=== PATIENT | male | born 1965 | race Caucasian/White ===

== ENCOUNTER → 2016-06-26 | Outpatient (CLI) | payer BC, OTHER ==
[~2016-06-26] MED LIST: ASPI81TA28 PO; GLC/500 PO; LISI-729 PO; MELO7.5T5 PO
[2016-06-26 13:30] LABS: ESTIMATED AVERAGE GLUCOSE 123 mg/dl; HA1C FLAG Normal (Normal)
[2016-06-26 13:41] LABS: BLOOD UREA NITROGEN 16 mg/dl (7-18); CALCIUM 9.1 mg/dl (8.5-10.1); CARBON DIOXIDE 29 mmol/L (21-32); CHLORIDE 105 mmol/L (98-107); CREATININE 0.97 mg/dl (0.60-1.40); GLUCOSE 99 mg/dl (70-99); POTASSIUM 4.2 mmol/L (3.5-5.1); SODIUM 140 mmol/L (136-145)
== END | disposition home or self-care (01) ==
LOC: C.LABMFLN 11:03
PROVIDERS: ATTEND Family Medicine
DX: J01.90 Acute sinusitis, unspecified (principal); I10 Essential (primary) hypertension; R73.01 Impaired fasting glucose

== ENCOUNTER 2023-06-25 06:25 | Observation (INO) ==
--- NOTE | 2023-06-10 13:34 | PAT Medication Instructions ---
Medication Instructions Date of Service June 10, 2023 Home Medications Medication Instructions Recorded [facility] Mirage Quattro Mask #1 ea 03/07/20 CPAP Supplies #2 ea 03/15/20 Filters foam 1x2 inch #30 ea 03/15/20 Head Gear for Mirage Quattro #1 ea 03/15/20 Mirage mask , 8 ft tubing, headgear #1 ea 12/17/21 lisinopril 10 mg tablet 10 mg PO QAM #90 tabs 01/24/23 metformin 500 mg tablet See Rx Instructions .Route 01/24/23 .COMPLEX #90 tabs bupropion HCl 200 mg tablet,12 hr See Rx Instructions .Route 03/24/23 sustained-release .COMPLEX #90 ea diclofenac sodium 75 mg 75 mg PO BID #60 tabs 04/28/23 tablet,delayed release aspirin 81 mg tablet,delayed release 81 mg PO QAM lisinopril 10 mg tablet 10 mg PO QAM metformin 500 mg tablet See Rx Instructions .Route .COMPLEX bupropion HCl 200 mg tablet,12 hr sustained-release See Rx Instructions .Route .COMPLEX diclofenac sodium 75 mg tablet,delayed release 75 mg PO BID Continue as directed bupropion HCl 200 mg tablet,12 hr sustained-release See Rx Instructions .Route .COMPLEX ASK your surgeon for instructions diclofenac sodium 75 mg tablet,delayed release 75 mg PO BID ASK your prescriber and surgeon aspirin 81 mg tablet,delayed release 81 mg PO QAM DO NOT take the morning of surgery lisinopril 10 mg tablet 10 mg PO QAM metformin 500 mg tablet See Rx Instructions .Route .COMPLEX Other Notes NOTHING TO EAT OR DRINK AFTER MIDNIGHT. If you have any questions please call us at [phone] or [phone] or [phone] or [phone]
--- NOTE | 2023-06-13 13:30 | Anesthesiology Consultation ---
Date of Service June 13, 2023 Assessment & Plan (1) Encounter for pre-operative examination: - check BSG am DOS. - PCP pre-op 06/10/23 [place]: "...CPAP available for the sedation and surgery. Metformin to be stopped 2 days before surgery and restart 3 days after surgery if hemodynamically stable. Stop aspirin now. Lisinopril to be moved to evening dose and can be taken the evening before surgery and the evening after surgery if hemodynamically stable. Operative risk is above average diue [sic] to his hx severe sleep apnea. Airway will need to be controlled and when sleeping will require CPAP. He will bring in his machine..." Outpatient joint assessment: Patient is currently scheduled for inpatient pathway. If re-evaluated and patient/surgeon requests outpatient pathway, patient is acceptable candidate for outpatient joint program from anesthesia standpoint pending surgeon's office assessment of pt motivation/support/completion of same day joint program preop requirements. Chart Review Chart Review: Acceptable Risk for Surgery and Patient seen in Pre Admission Testing Teaching & Discussion Pre-Anesthesia Teaching/Discussion Notes: Instructed NPO after midnight before surgery, except medications with 15 cc of water. Medication instructions provided according to the PAT guidelines. History Surgery Operation Date: 06/25/23 14:30 Proposed Procedures p Right Total Knee Arthroplasty - Heath Coronado MD Height/Weight Height: 5 ft 6 in Weight: 115.7 kg Allergies Allergy/AdvReac Type Severity Reaction Status Date / Time benzonatate Allergy Intermediate hives Verified 06/10/23 15:09 celecoxib [From Celebrex] Allergy Intermediate hives Verified 06/10/23 15:09 naproxen Allergy Intermediate Hives Verified 06/10/23 15:09 Penicillins Allergy Intermediate Hives Verified 06/10/23 15:09 Sulfa (Sulfonamide Allergy Intermediate Hives Verified 06/10/23 15:09 Antibiotics) Medications Home Medications Medication Instructions Recorded Confirmed Last Taken aspirin 81 mg tablet,delayed 81 mg PO QAM 07/30/18 06/10/23 10/03/22 01:00 release [employer] Mir[employer] Quattro Mask #1 ea 03/07/20 06/10/23 Unknown CPAP Supplies #2 ea 03/15/20 06/10/23 Unknown Filters foam 1x2 inch #30 ea 03/15/20 06/10/23 Unknown Head Gear for Mirage Quattro #1 ea 03/15/20 06/10/23 Unknown Mirage mask , 8 ft tubing, headgear #1 ea 12/17/21 06/10/23 Unknown metformin 500 mg tablet See Rx Instructions .Route 01/24/23 06/10/23 Unknown .COMPLEX #90 tabs bupropion HCl 200 mg tablet,12 hr See Rx Instructions .Route 03/24/23 06/10/23 Unknown sustained-release .COMPLEX #90 ea diclofenac sodium 75 mg 75 mg PO BID #60 tabs 04/28/23 06/10/23 Unknown tablet,delayed release lisinopril 10 mg tablet 10 mg PO QPM 06/13/23 06/13/23 Unknown Additional Notes: Patient was advised he can take lisinopril the evening before surgery as he states was recently adjusted by his PCP, he verbalized understanding cannot take this morning of surgery. Past Medical History Medical History (Updated 06/13/23 @ 13:25 by Roro Craven PA-C) Anxiety mild generalized anxiety BPH (benign prostatic hyperplasia) History of COVID-19 12/2021>denies hospitalization>symptoms resolved Hypertension controlled, stable per pt Prediabetes on metformin Sleep apnea CPAP-compliant Patient denies h/o stroke, seizures, heart attack, heart failure, blood clots/DVTs or blood transfusions. Exercise / Class Metabolic Activity II 4-5 Yardwork/Stairs/Walk up hill (denies chest discomfort or shortness of breath with 1 FOS) Past Family History Family History Father Family history of diabetes mellitus Stroke Mother Family history of diabetes mellitus Melanoma Other No family history of adverse response to anesthesia Past Surgical History Surgical History History of ankle surgery RT>BENIGN TUMOR REMOVED BEHIND ANKLE LEFT ANKLE SURGERY History of arthroscopy RT SHOULDER AND LEFT/RT KNEE SCOPED History of carpal tunnel release of both wrists History of colonoscopy History of esophagogastroduodenoscopy (EGD) History of oral surgery DENTAL IMPLANTS History of repair of right rotator cuff History of tooth extraction Past Anesthesia History No Hx of Anesthesia Complications and No Family Hx of Anesthesia Complications History of PONV No Hx of PONV and No Hx of Motion Sickness Social History Smoking Status: Never smoker Do You Dip or Chew Tobacco: No Hx Alcohol Use: Yes alcohol intake frequency: holidays/special occasions only Hx Substance Use: No substance use type: does not use Review of Systems Patient denies chest pain, shortness of breath, dyspnea on exertion, reflux, fever, chills, cough, wheezing, or palpitations. Physical Exam Vital Signs Vitals BP 115/76 P 82 TEMP 98.3 SP02 96% on RA RESP 18 Physical Patient resting comfortably in chair in no acute distress, alert and oriented, responding appropriately throughout visit Full cervical extension range of motion without pain TMD < 3 finger breadths Mallampati Score 3 Dentition: implants-right upper side and left upper front, denies chipped or loose teeth, caps/crowns, or bridges Lungs: normal respiratory effort. Good air movement, clear throughout to auscultation, no adventitious breath sounds Cardiac: regular rate and rhythm, no murmurs noted Carotid arteries: negative bruit bilat Lab Results Anesthesia Preop Results Results Anesthesia Widget: WBC 8.41 K/ul (4.8-10.8) 06/13/23 Hgb 13.9 g/dl (14.0-18.0) L 06/13/23 Hct 41.0 % (42.0-52.0) L 06/13/23 Plt 270 K/uL (130-400) 06/13/23 Na 137 mmol/L (136-145) 06/13/23 K 4.3 mmol/L (3.5-5.1) 06/13/23 Cl 102 mmol/L (98-107) 06/13/23 CO2 28 mmol/L (21-32) 06/13/23 BUN 21 mg/dl (6-23) 06/13/23 Creat 0.91 mg/dl (0.6-1.4) 06/13/23 Glucose Level 85 mg/dl (70-99(Fasting)) 06/13/23 PT 10.1 Seconds (9.0-12.0) 06/13/23 PTT 26 Seconds (21-31) 06/13/23 INR 0.9 (0.9-1.1) 06/13/23 HA1c 5.9 % (4.5-5.6) H 06/13/23 Urine Color Yellow 06/13/23 Urine Appearance Clear (Clear) 06/13/23 Urine pH 6.5 (4.5-7.5) 06/13/23 Urine Specific [place] 1.010 (1.000-1.030) 06/13/23 Urine Protein Negative (Negative) 06/13/23 Urine Glucose (UA) Negative (Negative) 06/13/23 Urine Ketones Negative (Negative) 06/13/23 Urine Blood Negative (Negative) 06/13/23 Urine Nitrite Negative (Negative) 06/13/23 Urine Bilirubin Negative (Negative) 06/13/23 Urine Urobilinogen Negative (Negative) 06/13/23 Urine Leukocyte Esterase Negative (Negative) 06/13/23 Blood Type A Positive 06/13/23 Antibody Screen NEGATIVE 06/13/23 Testing Electrocardiogram Date: 08/09/22 Sinus rhythm, rate 61 bpm Moderate intraventricular conduction delay Chest X-Ray Date: 06/13/23 No acute process.
--- NOTE | 2023-06-24 19:21 | History & Physical Report ---
Date of Service June 24, 2023 Assessment & Plan (1) Primary osteoarthritis of right knee: Plan: Treatment options discussed with the patient. He has failed conservative measures and like to proceed with surgical management. Risks, benefits and alternatives to surgery including but not limited to infection, DVT, pain, stiffness, need for revision surgery, damage to blood vessels, damage to nerves, PE, , were discussed with the patient and they wish to proceed. Plan on right total knee arthroplasty scheduled for June [address] Coronado. Plan on aspirin 81 mg twice daily for 1 month postop for DVT prophylaxis. Plan on outpatient physical therapy postop. All Questions answered. Patient will follow-up postoperatively. History of Present Illness Chief Complaint: Right knee pain Primary Care Provider: Naresh Rider MD 58-year-old male with past medical history significant for hypertension, sleep apnea, BPH who presents with ongoing right knee pain. Pain is interfering with his daily activities. Patient has failed conservative measures and would like to proceed with surgical management. Patient denies headaches, sweats, fevers, chills, double vision, blurred vision, cough, sore throat, dysphagia, chest pain, sob, wheezing, n/v/d/c, numbness, tingling, fatigue, urinary symptoms, mood disorders. ROS positive for right knee pain and stiffness. Allergies Allergy/AdvReac Type Severity Reaction Status Date / Time benzonatate Allergy Intermediate hives Verified 06/10/23 15:09 celecoxib [From Celebrex] Allergy Intermediate hives Verified 06/10/23 15:09 naproxen Allergy Intermediate Hives Verified 06/10/23 15:09 Penicillins Allergy Intermediate Hives Verified 06/10/23 15:09 Sulfa (Sulfonamide Allergy Intermediate Hives Verified 06/10/23 15:09 Antibiotics) Home Medications Medication Instructions Recorded Confirmed Type aspirin 81 mg tablet,delayed 81 mg PO QAM 07/30/18 06/10/23 History release [facility] Mir[employer] Quattro Mask #1 ea 03/07/20 06/10/23 Rx CPAP Supplies #2 ea 03/15/20 06/10/23 Rx Filters foam 1x2 inch #30 ea 03/15/20 06/10/23 Rx Head Gear for Mirage Quattro #1 ea 03/15/20 06/10/23 Rx Mirage mask , 8 ft tubing, headgear #1 ea 12/17/21 06/10/23 Rx metformin 500 mg tablet See Rx Instructions .Route 01/24/23 06/10/23 Rx .COMPLEX #90 tabs bupropion HCl 200 mg tablet,12 hr See Rx Instructions .Route 03/24/23 06/10/23 Rx sustained-release .COMPLEX #90 ea diclofenac sodium 75 mg 75 mg PO BID #60 tabs 04/28/23 06/10/23 Rx tablet,delayed release lisinopril 10 mg tablet 10 mg PO QPM 06/13/23 06/13/23 History Past Med/Surg History Medical History (Updated 06/24/23 @ 19:20 by Rohan Mcneil PA-C) BPH (benign prostatic hyperplasia) History of COVID-19 12/2021>denies hospitalization>symptoms resolved Prediabetes on metformin Anxiety mild generalized anxiety Hypertension controlled, stable per pt Sleep apnea CPAP-compliant Surgical History History of esophagogastroduodenoscopy (EGD) History of colonoscopy History of repair of right rotator cuff History of carpal tunnel release of both wrists History of ankle surgery RT>BENIGN TUMOR REMOVED BEHIND ANKLE LEFT ANKLE SURGERY History of oral surgery DENTAL IMPLANTS History of tooth extraction History of arthroscopy RT SHOULDER AND LEFT/RT KNEE SCOPED Family History Father Family history of diabetes mellitus Stroke Mother Family history of diabetes mellitus Melanoma Other No family history of adverse response to anesthesia Social History Smoking Status: Never smoker Second Hand Exposure: No; Do You Dip or Chew Tobacco: No; Tobacco Cessation Education Requested by Patient: No Hx Alcohol Use: Yes Hx Substance Use: No Preferred Language: Divehi Communication Ability: Effective Visual Impairment: No Limitations Wood Treating Inspector Required: No Beliefs That Will Affect Care: None Current Living Situation: Spouse Other Information That Helps Us Care for You: No Feels Safe at Home: Yes Safety Concerns: Feels Safe At This Time Childhood Exposure to Second-Hand Smoke: Yes (Brother) Seatbelt Use: sometimes Sunscreen Use: Yes Assistive Devices: CPAP and Glasses Review of Systems All systems reviewed & are unremarkable except as noted in HPI & below Physical Exam Constitutional: well developed and well nourished; no acute distress Eyes: PERRL, conjunctivae normal, anicteric sclerae ENMT: external ear and nose normal, oropharynx normal Neck: trachea midline, no thyromegaly Respiratory: normal respiratory effort, lungs clear to auscultation Cardiovascular: RRR, no murmur, no edema Musculoskeletal: Right knee: Valgus alignment. Mild effusion. Tenderness medial lateral joint line. Moderate crepitation. [place]'s is positive bilaterally. Valgus stress test with lateral laxity, stable varus stress test. Range of motion is 0 to 120 degrees. There is some knee hyperextension on the right with more valgus alignment on the right than the left. Some pseudolaxity bilaterally with more laxity on the right MCL. Skin: no rashes, warm and dry Neurologic: patellar DTR's 2+ bilat, sensation intact Psychiatric: A+Ox3, euthymic affect Results & Data Diagnostic Findings Right knee radiographs demonstrate [id number] lateral compartment with bone loss with significant valgus alignment. Large loose body posterior. Patellofemoral compartment with moderately advanced osteoarthritic changes.
[~2023-06-25 06:25] MED LIST changes: +ACETAMINOPHEN 500 MG TAB PO SCH; -ASPI81TA28 PO; +BUPIVACAINE 0.5 % 5 MG/1 ML PF 10ML VIAL ONE; +FAMOTIDINE 20 MG TAB PO SCH; +GABAPENTIN 600 MG DOSE PO SCH; -GLC/500 PO; -LISI-729 PO; +LR 500ML BOLUS, THEN 15ML/HR IV SCH; +LR 60ML/HR IV SCH; -MELO7.5T5 PO; +METOCLOPRAMIDE HCL 10 MG TABLET PO SCH; +ROPIV 0.5% 246mg, Ketorolac 30mg, EPINEPHrine 0.5mg in NSS INFIL SCH; +ROPIVACAINE 0.5% 5 MG/ML 30 ML VIAL ONE; +TRANEXAMIC ACID 1,000 MG **IV Intra-op IV SCH; +TRANEXAMIC ACID 1,000 MG **IV Pre-op IV SCH; +VANCOMYCIN HCL 1,750 MG in SODIUM CHLORIDE 0.9% 500 ML IV SCH; +dexAMETHasone**PF** 10 MG/ML VIAL IV SCH
[2023-06-25] MEDS ORDERED: ONDANSETRON INJ 2 MG/ML 2 ML VIAL ONE (07:31)
[2023-06-25] MEDS ORDERED: MIDAZOLAM HCL 1 MG/ML 2ML VIAL ONE (07:31)
[2023-06-25] MEDS ORDERED: PROPOFOL IV EMULSION 10 MG/ML 20 ML VIAL IV ONE ×4 (07:31→11:11)
[2023-06-25] MEDS ORDERED: fentaNYL citrate PF 100 MCG/2 ML VIAL ONE (07:31)
[2023-06-25] MEDS ORDERED: LIDOCAINE 2% 2 ML VIAL/AMP(20MG/ML) INFIL ONE (07:31)
[2023-06-25] MEDS ORDERED: DEXAMETHASONE SOD INJ 4 MG/ML VIAL ONE (07:31)
--- NOTE | 2023-06-25 07:35 | History & Physical Bridge Note ---
Date of Service June 25, 2023 History & Physical Bridge Note I have examined the patient, reviewed the History & Physical and in the interval since the performance of the History & Physical I have noted the following changes of clinical significance: no changes noted
[2023-06-25] MEDS ORDERED: dexAMETHasone**PF** 10 MG/ML VIAL ONE (08:13)
[2023-06-25] MEDS ORDERED: ORTHO JOINT ANESTHETIC ONE (08:15)
[2023-06-25] MEDS ORDERED: fentaNYL citrate PF 100 MCG/2 ML VIAL IV PRN (08:41)
[2023-06-25] MEDS ORDERED: ONDANSETRON INJ 2 MG/ML 2 ML VIAL IV PRN ×2 (08:41→12:19)
[2023-06-25] MEDS ORDERED: ePHEDrine sulfate 50 MG/ML AMP IV PRN (08:41)
[2023-06-25] MEDS ORDERED: ATROPINE SULFATE 0.1 MG/ML 10ML SYR IV PRN (08:41)
[2023-06-25] MEDS ORDERED: ePHEDrine sulfate 50 MG/5 ML SYR ONE (09:35)
[2023-06-25] MEDS ORDERED: PHENYLEPHRINE 100MCG/ML 10ML SYR IV ONE (09:35)
--- NOTE | 2023-06-25 11:26 | Operative Report ---
Post Operative Report Pre & Post Diagnosis Operation Date: 06/25/23 09:35 Pre-Op Diagnosis: Right Knee Osteoarthritis Post-Op Diagnosis: Right Knee Osteoarthritis I identified the patient and participated in the time-out.: Yes Procedure Operation Date: 06/25/23 09:35 Actual Procedures p Right Total Knee Arthroplasty(Right), Simone and Acticoat superficial wound VAC application - Heath Coronado MD Surgeon Heath Coronado MD Senior Engineering Specialist Rohan TEIXEIRA Estimated Blood Loss 5 Findings Consistent with Post-Op Diagnosis Specimens bone cuts Drains 2 Hemovac Anesthesia Type MAC Spinal Regional Complications none Disposition Disposition: Recovery Room Indications 58-year-old male with bilateral severe osteoarthritis of the knees with the right knee having marked valgus alignment and limited range of motion. Patient has [id number] lateral compartment with bone loss and gapping of the medial compartment with some laxity of the MCL. Description of Procedure Patient was taken to the operating room placed supine on the operating table and anesthetized under Spinal MAC regional block anesthesia. Exam under anesthesia demonstrated moderately large effusion with 0 through 115 degrees range of motion with some grade 2 MCL laxity with valgus stress and no pseudolaxity laterally with tight lateral compartment. Valgus alignment around 20 degrees at least. There are multiple varicose veins that were large on the entire leg ankle to thigh. A pneumatic tourniquet was placed about the thigh of the Right lower extremity. The right lower extremity was prepped and draped in usual sterile fashion. The leg was elevated exsanguinated with an Esmarch bandage and the pneumatic tourniquet was raised to 300mm mercury. An anterior incision was made across the right knee. The skin was incised longitudinally subcutaneous flaps were elevated , some of the larger varicose veins were cauterized. an incision was made through the medial retinaculum extending up into the mid third of the quadriceps tendon and extended down to the medial tibial tubercle. Intra-articular findings demonstrated Severe lateral compartment osteoarthritis with bone loss eburnated bone complete notch stenosis chronic ACL tear chronic lateral meniscus tear with subluxation laterally calcification of the meniscus very tight IT band large tricompartmental osteophytes and some laxity but intact MCL. The knee was exposed by excising the infrapatellar fat pad, excising the meniscal remnants and Using a curved osteotome to remove the notch osteophytes and expose the posterior cruciate ligament and it was excised. Any inflamed synovial tissue was resected. The fat pad over the anterior femur was resected for placement of the component in that area. The lateral synovial bands were released. The femur was exposed. The Intramedullary drill hole was placed into the femoral canal and the cutting guide was adjusted to make a 6 degree valgus cut. I had to do a +2 cut because there was a hypoplastic lateral femoral condyle and at the +0 setting we would not cut through any bone on the femoral condyle.. The distal femoral cut was made with the oscillating saw. The sizing guide was placed and the guide was placed in alignment with the epicondylar axis and pinned in position and femur sized for size 7. The size 7, 4-in-1 cutting block was placed. The anterior and posterior chamfer cuts were made. The knee was extended and a subperiosteal peel lateral release was performed around the patella. The patella width was measured and width was reproduced using freehand cut technique. The 32 millimeter symmetrical patella was used. 3 drill holes are made for the pegs. The tibia was exposed. An external tibial cutting guide was placed perpendicular to the tibia long axis and adjusted for slope and appropriate depth of cut 1 to 2 mm below the most deficient lateral side.. the proximal cut was made with the oscillating saw. All osteophytes were resected. The lamina adon was used to assess ligamentous balance and the ligaments were balanced in extension and flexion. in order to get flexion extension ba jose alberto gaps it required release of the lateral tibial plateau release to the IT band on the lateral tibial plateau piecrusting the IT band releasing the popliteus off the femur. The tibia was reexposed and measured for a size F tibial component. This was externally rotated in line with the tibial tubercle and the fixation pins were drilled. The proximal tibia was fashioned with the drill and punch. The size7 femoral trial was inserted. notch cut was made and call was placed. The trial CPS inserts were used. The 12 mm insert gave balanced ligaments through full range of motion. The patella tracked with some lateral patellar tilt so I did a lateral release leaving the synovium intact and corrected the patella to central tracking. the trials were removed. The orthomix anesthetic cocktail was injected per protocol. The knee was then copiously irrigated with pulsatile lavage saline solution. The final components were cemented with Refobacin bone cement. The final components were 7 standard posterior stabilized [employer] persona femoral component with an F right tibial component with a 12 CPS tibial polyethylene and a 32 mm polyethylene symmetrical patell. experience solution was placed below the tibial polyethylene prior to insertion. The knee joint was copiously irrigated with pulsatile lavage Xperience solution . 2 drains were brought out laterally and connected to a Hemovac. The quadriceps tendon and medial retinaculum were closed with interrupted [id number] #1 Vicryl sutures. The knee was taken through a full range of motion which was 0-130 degrees and the repair was secure. The subcutaneous tissues were closed with 2-0 Vicryl sutures and skin was closed with [place].A Simone and Acticoat superficial wound VAC was applied and the patient tolerated the procedure well. Rohan Valle my physician museum assistant participated as first aid officer and was an integral part in all aspects of the procedure ,he assisted in soft tissue retraction, instrument management ,leg positioning, the closure, application of the superficial wound VAC and will participate in the postoperative care of the patient. I attest to the content of the Intraoperative Record and any orders documented therein. Any exceptions are noted below.
[2023-06-25] MEDS ORDERED: METOCLOPRAMIDE HCL INJ 5 MG/ML 2 ML VIAL IV PRN (12:19)
[2023-06-25] MEDS ORDERED: NALOXONE HCL 0.4 MG/1 ML VIAL/CARP IV PRN (12:19)
[2023-06-25] MEDS ORDERED: bisacodyL 10 MG SUPP PR PRN (12:19)
[2023-06-25] MEDS ORDERED: TAMSULOSIN HCL 0.4 MG CAP PO PRN (12:19)
[2023-06-25] MEDS ORDERED: HYDROmorphone INJ 0.5 MG/0.5 ML SYR IV PRN (12:19)
[2023-06-25] MEDS ORDERED: SODIUM CHLORIDE 0.9% 1,000 ML IV SCH (12:19)
[2023-06-25] MEDS ORDERED: VANCOMYCIN CONSULT ACTIVE PRN (12:19)
[2023-06-25] MEDS ORDERED: MAGNESIUM HYDROXIDE SUSP 30 ML UDC PO PRN (12:19)
--- NOTE | 2023-06-25 12:31 | XRay Report ---
XR knee RT 1 or 2V routine CLINICAL HISTORY: Postoperative evaluation. COMPARISON: Right knee radiographs January 12, 2020. FINDINGS: Alignment of the total right knee arthroplasty is anatomic. There is no periprosthetic fra cture or unexpected radiopaque foreign body. There are skin rehana and surgical drain. Calcific dens ities within the right popliteal fossa are again noted. IMPRESSION: Expected findings following total right knee arthroplasty. ACT 112: Negative or not required by law. Electronically signed by: Castro Pena M.D. 06/25/2023 12:29 PM
[2023-06-25] MEDS: ACETAMINOPHEN 500 MG TAB PO SCH ×2 (14:11→21:37)
[2023-06-25] MEDS: buPROPion SR 100 MG TABCR PO SCH (14:11)
--- NOTE | 2023-06-25 14:51 | Anesthesiology Progress Note ---
Date of Service June 25, 2023 Anesthesia Post Procedure Vital Signs Vital Signs: Temp Pulse Pulse Resp BP Pulse Ox O2 Del Method 06/25/23 14:15 97.7 F 77 18 115/67 97 Room Air 06/25/23 13:31 98.1 F 70 16 109/66 98 Room Air 06/25/23 12:54 97.5 F L 79 18 109/68 97 Room Air 06/25/23 12:26 98.2 F 81 18 105/61 100 Room Air 06/25/23 12:10 99.1 F 77 15 110/63 93 Room Air 06/25/23 12:00 88 17 106/61 97 Oxymask 06/25/23 11:52 99.0 F 89 14 117/70 97 Oxymask 06/25/23 06:58 98.4 F 81 18 136/78 97 Room Air O2 Flow Rate 06/25/23 14:15 06/25/23 13:31 06/25/23 12:54 06/25/23 12:26 06/25/23 12:10 06/25/23 12:00 7 06/25/23 11:52 7 06/25/23 06:58 Transfer of Care Handoff Completed per policy Notes Mental Status: alert / awake / arousable and participated in evaluation Patient Amnestic to Procedure: Yes Nausea / Vomiting: adequately controlled Pain: adequately controlled Airway Patency, RR, SpO2: stable & adequate BP & HR: stable & adequate Hydration State: stable & adequate Neuraxial Anesthesia: was administered and sensory block is resolving Anesthetic Complications: no major complications apparent and Pt Satisfied with anesthetic care
--- NOTE | 2023-06-25 15:34 | Hospitalist Consultation ---
Date of Consultation June 25, 2023 Assessment & Plan (1) Status post total right knee replacement: -Patient is Post-op Day # 0, S/P Right Total Knee Arthroplasty, Simone and Acticoat superficial wound VAC application with Dr. Coronado -EBL listed as 5cc, MAC/Regional/Spinal anesthesia, no reported intraoperative complications -Patient denies current complaints -Agree with AM CBC and BMP tomorrow, we will follow -Monitor for bleeding after starting Xarelto on 06/26 for post-operative DVT PPX -Will order daily famotidine for stress ulcer PPX -Thank you for allowing us to participate in the care of this patient, reach out with any questions or concerns -Medicine will continue to follow (2) Benign essential hypertension: -Stable -Ok to restart lisinopril on 06/26 as ordered as long as he is hemodynamically stable with stable renal function (3) Obstructive sleep apnea: -Order placed at the time of consult for patient to use own CPAP (4) Prediabetes: -Hold metformin -Not on insulin therapy -Will start ACHS BSG checks, goal is 110-140 -Start CF of 50 ACHS for now -Conitnue DMII diet -Adjust regimen as needed Plan The patient was discussed with Dr. Carrasco at the time of the consult History of Present Illness Reason for Consultation: Post-op medical management Requesting Physician: Heath Coronado MD Attending Physician: Dr. Adolfo Carrasco History of Present Illness Kg is a 58 year old male with a PMH significant for HTN, LUIS on HS CPAP, prediabetes who presented to [facility] on 06/25/23 for elective Right Total Knee Arthroplasty(Right), Simone and Acticoat superficial wound VAC application with Dr. Coronado. Per the operative report, anesthesia was listed as MAC/Spinal/Regional, EBL was listed as 5, and there were no reported intraoperative complications. Vitals have remained stable. We were consulted for post-operative medical management. At the time of the exam the patient was sitting in bed in no acute distress with his sitting bedside. He is feeling well since his procedure earlier today. He can tell the nerve block in the RLE is starting to wear off but is without complaints. He was able to eat lunch without issue and brought his home CPAP machine with mask. He did not have any home meds this am prior to arrival. Please refer to Dr. Carrasco's attestation for any changes to the treatment plan Allergies Allergy/AdvReac Type Severity Reaction Status Date / Time benzonatate Allergy Intermediate hives Verified 06/25/23 06:56 celecoxib [From Celebrex] Allergy Intermediate hives Verified 06/25/23 06:56 naproxen Allergy Intermediate Hives Verified 06/25/23 06:56 Penicillins Allergy Intermediate Hives Verified 06/25/23 06:56 Sulfa (Sulfonamide Allergy Intermediate Hives Verified 06/25/23 06:56 Antibiotics) Home Medications Medication Instructions Recorded Confirmed Type aspirin 81 mg tablet,delayed 81 mg PO QAM 07/30/18 06/25/23 History release [employer]Med Mirage Quattro Mask #1 ea 03/07/20 06/10/23 Rx CPAP Supplies #2 ea 03/15/20 06/10/23 Rx Filters foam 1x2 inch #30 ea 03/15/20 06/10/23 Rx Head Gear for Mirage Quattro #1 ea 03/15/20 06/10/23 Rx Mirage mask , 8 ft tubing, headgear #1 ea 12/17/21 06/10/23 Rx metformin 500 mg tablet See Rx Instructions .Route 01/24/23 06/25/23 Rx .COMPLEX #90 tabs diclofenac sodium 75 mg 75 mg PO BID #60 tabs 04/28/23 06/25/23 Rx tablet,delayed release lisinopril 10 mg tablet 10 mg PO QPM 06/13/23 06/25/23 History bupropion HCl 200 mg tablet,12 hr See Rx Instructions .Route .COMPLEX 06/25/23 06/25/23 History sustained-release (Wellbutrin SR) Patient History Medical History BPH (benign prostatic hyperplasia) History of COVID-19 12/2021>denies hospitalization>symptoms resolved Prediabetes on metformin Anxiety mild generalized anxiety Hypertension controlled, stable per pt Sleep apnea CPAP-compliant Surgical History (Updated 06/25/23 @ 15:54 by Frank Vivas PA-C) History of esophagogastroduodenoscopy (EGD) History of colonoscopy History of repair of right rotator cuff History of carpal tunnel release of both wrists History of ankle surgery RT>BENIGN TUMOR REMOVED BEHIND ANKLE LEFT ANKLE SURGERY History of oral surgery DENTAL IMPLANTS History of tooth extraction History of arthroscopy RT SHOULDER AND LEFT/RT KNEE SCOPED Family History Father Family history of diabetes mellitus Stroke Mother Family history of diabetes mellitus Melanoma Other No family history of adverse response to anesthesia Social History Smoking Status: Never smoker Second Hand Exposure: No; Do You Dip or Chew Tobacco: No; Tobacco Cessation Education Requested by Patient: No Hx Alcohol Use: Yes Hx Substance Use: No Preferred Language: Welsh Communication Ability: Effective Visual Impairment: No Limitations Grain Broker Required: No Beliefs That Will Affect Care: None Current Living Situation: Spouse Other Information That Helps Us Care for You: No Feels Safe at Home: Yes Safety Concerns: Feels Safe At This Time Childhood Exposure to Second-Hand Smoke: Yes (Brother) Seatbelt Use: sometimes Sunscreen Use: Yes Assistive Devices: Walker Physical Exam Physical Exam: Physical Exam: General: In no acute distress, stated age, well-nourished, good hygiene HEENT: Normocephalic, atraumatic, no scleral icterus, pupils around round, symmetrical, and reactive to light, moist mucus membranes, trachea midline, no thyromegaly Chest/Pulm: No respiratory distress, symmetrical chest expansion, clear breath sounds throughout Cardiac: RRR, no murmurs noted Abdomen: Negative for ascites and bruising, normoactive bowel sounds, soft, non-tender to palpation throughout Musculoskeletal: RLE is currently wrapped and with splint in place, intact sensation and motor function in the BL feet Extremities: Radial, dorsalis pedis, and posterior tibial pulses are intact and symmetrical, no edema noted in the BL LE's Skin: Warm, dry, no rashes , lesions, or scars noted Neuro: Alert and oriented to person, place, month, year, and president, no focal defects, no tremors noted Psych: No acute distress, calm and cooperative during the exam Results & Data Results & Data Vital Signs (Past 12 Hours) Vital Signs Temp Pulse Pulse Resp BP Pulse Ox O2 Del Method 06/25/23 14:15 36.5 C 77 18 115/67 97 Room Air 06/25/23 13:31 36.7 C 70 16 109/66 98 Room Air 06/25/23 12:54 36.4 C L 79 18 109/68 97 Room Air 06/25/23 12:26 36.8 C 81 18 105/61 100 Room Air 06/25/23 12:10 37.3 C 77 15 110/63 93 Room Air 06/25/23 12:00 88 17 106/61 97 Oxymask 06/25/23 11:52 37.2 C 89 14 117/70 97 Oxymask 06/25/23 06:58 36.9 C 81 18 136/78 97 Room Air O2 Flow Rate 06/25/23 14:15 06/25/23 13:31 06/25/23 12:54 06/25/23 12:26 06/25/23 12:10 06/25/23 12:00 7 06/25/23 11:52 7 06/25/23 06:58 Laboratory Results Abnormal lab results 06/25/23 06/25/23 Range/Units 06:53 12:50 POC Glucose 115 H 146 H (70-99) mg/dl Diagnostic Findings Knee X-Ray 06/25/23 11:53 XR knee RT 1 or 2V routine CLINICAL HISTORY: Postoperative evaluation. COMPARISON: Right knee radiographs January 12, 2020. FINDINGS: Alignment of the total right knee arthroplasty is anatomic. There is no periprosthetic fracture or unexpected radiopaque foreign body. There are skin rehana and surgical drain. Calcific densities within the right popliteal fossa are again noted. IMPRESSION: Expected findings following total right knee arthroplasty. ACT 112: Negative or not required by law. Electronically signed by: Castro Pena M.D. 06/25/2023 12:29 PM PG Care Time/CCT Total # of Minutes Spent Total Time Spent with Patient: Total time spent is greater than 50% in coordination of care (as documented) at patient's floor/unit and/or counseling patient: C[place] [address] IN/OBS CONSULT LVL 5,80M Patient Type Established History Comprehensive Exam Comprehensive Medical Decision Making Moderate Complexity Diagnoses Status post total right knee replacement Z96.651 Benign essential hypertension I10 Obstructive sleep apnea G47.33 Prediabetes R73.03
[2023-06-25] MEDS ORDERED: GLUCOSE 10 TAB/TUBE PO PRN (15:49)
[2023-06-25] MEDS ORDERED: GLUCAGON FOR INJ 1 MG VIAL SQ PRN (15:49)
[2023-06-25] MEDS ORDERED: DEXTROSE 50% 50 ML SYRINGE IV PRN (15:49)
[2023-06-25] MEDS ORDERED: CARBOHYDRATES FOR HYPOGLYCEMIA PO PRN (15:49)
[2023-06-25] MEDS ORDERED: GLUCOSE 40% GEL 15 GM TUBE PO PRN (15:49)
[2023-06-25] MEDS: INSULIN ASPART PER UNIT CHARGE SC SCH ×2 (16:51→21:39)
[2023-06-25] MEDS ORDERED: SENNA 8.6 MG TAB PO SCH (21:00)
[2023-06-25] MEDS: DOCUSATE SODIUM 100 MG CAP PO SCH (21:37)
[2023-06-25] MEDS ORDERED: VANCOMYCIN HCL 1,750 MG in SODIUM CHLORIDE 0.9% 500 ML IV SCH (22:00)
[2023-06-25] MEDS: oxyCODONE HCL IR 5 MG TAB (IMMEDIATE RELEASE) PO PRN (23:22)
[2023-06-26] MEDS ORDERED: Nursing to Pharmacy Communication SCH (00:30)
[2023-06-26] MEDS: ACETAMINOPHEN 500 MG TAB PO SCH (05:42)
[2023-06-26 06:39] LABS: Hematocrit (blood only) 34.7 % (42.0-52.0); Hemoglobin 11.6 g/dl (14.0-18.0); Mean Corpuscular Hemoglobin 31.8 pg (25.0-34.0); Mean Corpuscular Hgb Conc 33.4 g/dL (32.0-36.0); Mean Corpuscular Volume 95.1 fL (80.0-100.0); Mean Platelet Volume 10.2 fL (9.4-12.4); Platelet Count 236 K/uL (130-400); RDW Coefficient of Variation 12.3 % (11.5-14.5); Red Blood Count 3.65 M/uL (4.70-6.10); White Blood Count 17.48 K/ul (4.8-10.8)
[2023-06-26 06:51] LABS: BUN Creatinine Ratio 21.2 (10-20); Calcium 8.8 mg/dl (8.6-10.3); Creatinine Clr Calc Pharmacy 113.4 ml/min; Est GFR (African American) 112.1 ml/min; Est GFR (Non-African American) 96.7 ml/min; Potassium 4.5 mmol/L (3.5-5.1)
--- NOTE | 2023-06-26 07:56 | Orthopedic Progress Note ---
Date of Service June 26, 2023 Assessment & Plan (1) Status post total right knee replacement: Plan: Postop day #1 right total knee arthroplasty -PT/OT -Pain management as written -DVT prophylaxis: SCDs, teds, Xarelto 10 mg daily -A.m. labs: Hemoglobin 11.6 from 13.9 preop acute blood loss anemia due to surgical loss versus dilutional. Leukocytosis likely reactive due to surgical stress versus perioperative steroids. Patient is asymptomatic. -Discharge planning: Plan on discharge home with outpatient therapy versus home health therapy. Will see outpatient progresses this morning and we will recheck Hemovac output for possible discharge home today versus tomorrow. Admission and Anticipated Discharge Date Admission Date: June 25, 2023 Subjective Patient is postop day 1 right total knee arthroplasty. He has mild soreness but is controlled. No other complaints. Denies chest pain, shortness of breath, nausea/vomiting/diarrhea, headaches or dizziness. Review of Systems Review of Systems: All systems reviewed & are unremarkable except as noted in Subjective Physical Exam Physical Exam: Right knee: Dressings clean, dry, intact. Hemovac on suction. Toes are mobile with good dorsiflexion. No calf tenderness. Able to straight leg raise. Distal neurovascular status and sensation is grossly intact. Results & Data Vital Signs (Past 12 Hours) Vital Signs Temp Pulse Resp BP Pulse Ox O2 Del Method 06/26/23 07:37 36.6 C 61 18 131/76 98 Room Air 06/26/23 03:05 36.7 C 72 18 110/70 93 Room Air 06/25/23 23:18 36.6 C 73 18 127/72 93 Room Air 06/25/23 20:00 Room Air
[2023-06-26] MEDS: buPROPion SR 100 MG TABCR PO SCH (08:04)
[2023-06-26] MEDS: DOCUSATE SODIUM 100 MG CAP PO SCH (08:04)
[2023-06-26] MEDS: oxyCODONE HCL IR 5 MG TAB (IMMEDIATE RELEASE) PO PRN ×2 (08:09→11:56)
[2023-06-26] MEDS: INSULIN ASPART PER UNIT CHARGE SC SCH (08:11)
--- NOTE | 2023-06-26 08:12 | Hospitalist Progress Note ---
Date of Service June 26, 2023 Assessment & Plan (1) Status post total right knee replacement: Plan: s/p Right Total Knee Arthroplasty, Simone and Acticoat superficial wound VAC application with lateral release to procedure, with Dr Coronado 06/25 Post-op management w/ pain control/bowel regimen/pt/ot/dvt proph per primary (Xarelto being utilized for DVT proph) WBC elevation suspected 2nd to stress/surgery/streroids. Afebrile Hgb 13.9--> 11.6. EBL 5cc, hemovac output 300cc. Acute blood loss anemia from surgery as well as dilutional aspect from IVF. Asymptomatic Planning for dc today per primary service however patient awaiting formal eval by therapy today to ensure able to return home. CM to follow given reports of issues w/ outpatient therapy/wanting home health therapy due to working/transport issues. Messaged CM to f/u on therapy evals for possible dc today (2) Benign essential hypertension: Plan: Chronic, stable BP 131/76 at present, renal function stable Lisinopril to continue this evening (3) Obstructive sleep apnea: Plan: CPAP HS, has own in room (4) Prediabetes: Plan: A1c 5.9, on metformin at home (held while inpatient) DM diet BSG AC/HS, sliding scale insulin w/ acceptable BSGs Can resume home metformin at dc Plan Thank you for allowing hospitalist service to participate in the care of Mr Moya. Hospitalist service will sign off at this time. Please call with any questions/concerns. Admission and Anticipated Discharge Date Admission Date: June 25, 2023 Supervising Physician Co-Signing Physician Notes The patient was not seen by me. The chart was reviewed. Case discussed with LLUVIA Max. Agree with assessment and plan Subjective Eval this morning, getting ready to work with PT. Eating/drinking without issue, passing some gas. Encouraged bowel regimen at dc to prevent constipation. Pain controlled with ordered meds. No fevers/chills, chest pain, shortness of breath, abdominal pain, nausea or vomiting. He is hopeful for discharge today but needs to ensure cleared by therapy and may stay overnight depending how he does. CM to look into home nursing to pull hemovac if able to dc today and continue home health therapy as difficult to get to outpatient PT. Physical Exam 2 Physical Exam: General: WD/WN obese male sitting up in chair, NAD, therapy in room HEENT: head atraumatic, normocephalic, thick neck Resp: even/unlabored, no significant w/c/r, on room air CV: RRR, no significant m/r/g, trace pedal edema, calves nontender (reported some cramping with walking), pulses palpable GI: +BS,soft/obese, nontender no lin MSK/Neuro; dressing to RIGHT knee, maicol wrap in place, c/d/i, dorsiflexion/plantar flexion intact, toes mobile, cap refill wnl Psych: AOx3, cooperative with exam Results & Data Results & Data Vital Signs (Past 12 Hours) Vital Signs Temp Pulse Resp BP Pulse Ox O2 Del Method 06/26/23 07:37 36.6 C 61 18 131/76 98 Room Air 06/26/23 03:05 36.7 C 72 18 110/70 93 Room Air 06/25/23 23:18 36.6 C 73 18 127/72 93 Room Air Laboratory Results 06/26/23 06:04 06/26/23 06:04 Diagnostic Findings Knee X-Ray 06/25/23 11:53 XR knee RT 1 or 2V routine CLINICAL HISTORY: Postoperative evaluation. COMPARISON: Right knee radiographs January 12, 2020. FINDINGS: Alignment of the total right knee arthroplasty is anatomic. There is no periprosthetic fracture or unexpected radiopaque foreign body. There are skin rehana and surgical drain. Calcific densities within the right popliteal fossa are again noted. IMPRESSION: Expected findings following total right knee arthroplasty. ACT 112: Negative or not required by law. Electronically signed by: Castro Pena M.D. 06/25/2023 12:29 PM PG Care Time/CCT Total # of Minutes Spent Total Time Spent with Patient: Total time spent is greater than 50% in coordination of care (as documented) at patient's floor/unit and/or counseling patient: Coding Level of Care Code 38024 SUB INP/OBS CARE 2/35MIN Diagnoses Status post total right knee replacement Z96.651 Benign essential hypertension I10 Obstructive sleep apnea G47.33 Prediabetes R73.03
[2023-06-26] MEDS ORDERED: MULTIVITAMIN TAB PO SCH (09:00)
[2023-06-26] MEDS ORDERED: RIVAROXABAN 10 MG TABLET PO SCH (09:00)
[2023-06-26] MEDS ORDERED: FAMOTIDINE 10 MG TABLET PO SCH (09:00)
[2023-06-26] MEDS ORDERED: lisinopril 10 MG TAB PO SCH (21:00)
--- NOTE | 2023-06-27 10:20 | Discharge Summary ---
Date of Service June 27, 2023 Admission HPI Per Admitting Provider 58-year-old male with past medical history significant for hypertension, sleep apnea, BPH who presents with ongoing right knee pain. Pain is interfering with his daily activities. Patient has failed conservative measures and would like to proceed with surgical management. Patient denies headaches, sweats, fevers, chills, double vision, blurred vision, cough, sore throat, dysphagia, chest pain, sob, wheezing, n/v/d/c, numbness, tingling, fatigue, urinary symptoms, mood disorders. ROS positive for right knee pain and stiffness. Admission Exam Per Admitting Provider Constitutional: well developed and well nourished; no acute distress Eyes: PERRL, conjunctivae normal, anicteric sclerae ENMT: external ear and nose normal, oropharynx normal Neck: trachea midline, no thyromegaly Respiratory: normal respiratory effort, lungs clear to auscultation Cardiovascular: RRR, no murmur, no edema Musculoskeletal: Right knee: Valgus alignment. Mild effusion. Tenderness medial lateral joint line. Moderate crepitation. Lubna's is positive bilaterally. Valgus stress test with lateral laxity, stable varus stress test. Range of motion is 0 to 120 degrees. There is some knee hyperextension on the right with more valgus alignment on the right than the left. Some pseudolaxity bilaterally with more laxity on the right MCL. Skin: no rashes, warm and dry Neurologic: patellar DTR's 2+ bilat, sensation intact Psychiatric: A+Ox3, euthymic affect Principal Diagnosis Right knee osteoarthritis Discharge Exam Right knee: Dressings clean, dry, intact. Hemovac on suction. Toes are mobile with good dorsiflexion. No calf tenderness. Able to straight leg raise. Distal neurovascular status and sensation is grossly intact. Discharge Data Allergies Allergy/AdvReac Type Severity Reaction Status Date / Time benzonatate Allergy Intermediate hives Verified 06/25/23 06:56 celecoxib [From Celebrex] Allergy Intermediate hives Verified 06/25/23 06:56 naproxen Allergy Intermediate Hives Verified 06/25/23 06:56 Penicillins Allergy Intermediate Hives Verified 06/25/23 06:56 Sulfa (Sulfonamide Allergy Intermediate Hives Verified 06/25/23 06:56 Antibiotics) Consultations 06/20/23 15:47 Consult Hospitalist Routine Procedures Performed Operation Date: 06/25/23 09:35 Actual Procedures p Right Total Knee Arthroplasty(Right) - Heath Coronado MD Ordered Studies 06/25/23 05:00 US - OR guided needle placemen Routine Hospital Course (1) Status post total right knee replacement: Postop day #1 right total knee arthroplasty -PT/OT -Pain management as written -DVT prophylaxis: SCDs, teds, Xarelto 10 mg daily -A.m. labs: Hemoglobin 11.6 from 13.9 preop acute blood loss anemia due to surgical loss versus dilutional. Leukocytosis likely reactive due to surgical stress versus perioperative steroids. Patient is asymptomatic. -Discharge planning: Plan on discharge home with outpatient therapy versus home health therapy. Will see outpatient progresses this morning and we will recheck Hemovac output for possible discharge home today versus tomorrow. Lab Results 06/25/23 06/25/23 06/25/23 Range/Units 06:53 12:50 16:46 WBC (4.8-10.8) K/ul RBC (4.70-6.10) M/uL Hgb (14.0-18.0) g/dl Hct (42.0-52.0) % MCV (80.0-100.0) fL MCH (25.0-34.0) pg MCHC (32.0-36.0) g/dL RDW Std Deviation (36.4-46.3) fL RDW Coeff of Jaimie (11.5-14.5) % Plt Count (130-400) K/uL MPV (9.4-12.4) fL Sodium (136-145) mmol/L Potassium (3.5-5.1) mmol/L Chloride (98-107) mmol/L Carbon Dioxide (21-32) mmol/L Anion Gap (3-11) BUN (6-23) mg/dl Creatinine (0.6-1.4) mg/dl Est Cr Clr Drug Dosing ml/min Est GFR ( Amer) ml/min Est GFR (Non-Af Amer) ml/min BUN/Creatinine Ratio (10-20) Glucose (70-99(Fasting)) mg/dl POC Glucose 115 H 146 H 185 H (70-99) mg/dl Calcium (8.6-10.3) mg/dl 06/25/23 06/26/23 06/26/23 Range/Units 20:37 06:04 07:36 WBC 17.48 H (4.8-10.8) K/ul RBC 3.65 L (4.70-6.10) M/uL Hgb 11.6 L (14.0-18.0) g/dl Hct 34.7 L (42.0-52.0) % MCV 95.1 (80.0-100.0) fL MCH 31.8 (25.0-34.0) pg MCHC 33.4 (32.0-36.0) g/dL RDW Std Deviation 43.0 (36.4-46.3) fL RDW Coeff of Jaimie 12.3 (11.5-14.5) % Plt Count 236 (130-400) K/uL MPV 10.2 (9.4-12.4) fL Sodium 136 (136-145) mmol/L Potassium 4.5 (3.5-5.1) mmol/L Chloride 106 (98-107) mmol/L Carbon Dioxide 25 (21-32) mmol/L Anion Gap 5 (3-11) BUN 18 (6-23) mg/dl Creatinine 0.85 (0.6-1.4) mg/dl Est Cr Clr Drug Dosing 113.4 ml/min Est GFR ( Amer) 112.1 ml/min Est GFR (Non-Af Amer) 96.7 ml/min BUN/Creatinine Ratio 21.2 H (10-20) Glucose 134 H (70-99(Fasting)) mg/dl POC Glucose 149 H 119 H (70-99) mg/dl Calcium 8.8 (8.6-10.3) mg/dl Total Time Total Time Spent Total Time Spent (In Minutes): 20 Discharge Plan Discharge Items Patient Disposition: Home - Self-Care Reason For Visit: Osteoarthritis Knee Right Discharge Diagnosis: Right knee osteoarthritis Activity: Per Instructions section Non-emergency contact: Surgeon Call non-emergency contact if: you have any medication questions, your pain is not controlled, you have a fever, your temperature is above 101, your wound has increased redness and your wound has increased drainage Follow-up/Referrals: Naresh Rider MD [Primary Care Provider] - Diet: Regular Addtl Attending Provider Instructions: ACTIVITY RECOMMENDATIONS: SELF CARE INSTRUCTIONS AFTER TOTAL KNEE REPLACEMENT A. You may need to continue a physical therapy program after discharge from the hospital. There are several options available to you. Your doctor will assist you in selecting the best one for you. 1. An out-patient facility 2 to 3 times a week for therapy or home therapy. 2. Continue working on all exercises taught to you in the hospital. Your goals should be to increase bending of your knee to 90 degrees and beyond and to fully straighten your knee. B. You may progress at your own pace from walking with a walker or crutches to a cane; then to no assistive devices. C. Make walking a part of your daily routine. Be up as much as comfortable with rest periods throughout the day. Rest with leg elevation is very important. Use the ice wrap frequently for the first 3-4 weeks. D. There are no restrictions on activities. You may ride in a car, shop, participate in securities underwriter and all social activities. E. Wear the long elastic stockings (CHARLENE hose) 20 hours a day for 2 weeks after surgery. They can be removed several times a day for laundering and for a bath. F. You may shower, no tub baths until cleared by your doctor. SPECIAL CARE INSTRUCTIONS: VERY IMPORTANT TO READ AND REVIEW A. There are a few signs you need to watch for after you are home. Call [facility] if you notice any of the followin. Increased severe knee pain. Some pain is expected especially when you exercise. 2. Increased swelling in your leg or knee; pain or swelling of the calf muscle in either lower leg. 3. Any fluid drainage from the incision. 4. Shortness of breath or chest pain. B. Please call [facility] at if you have any concerns or questions about your operation or recovery. The doctor or his nurse will return your call promptly. C. You must take antibiotics before dental work, bladder, bowel or other surgery. Your doctor will provide you with a permanent care to carry describing this precaution. IMPORTANT: * REMEMBER TO TAKE ASPIRIN, 81 MG, TWICE DAILY FOR 4 WEEKS UNLESS OTHERWISE DIRECTED. THIS IS YOUR BLOOD THINNER. * HIGH RISK PATIENTS MAY BE PRESCRIBED A STRONGER BLOOD THINNER. THIS WILL BE PROVIDED AT DISCHARGE. * CALL IF INCREASED PAIN, REDNESS, DRAINAGE OR FEVER GREATER THAT 101. * WEAR CHARLENE HOSE 20 HOURS PER DAY FOR 2 WEEKS. There is a large suction dressing covering your incision. This will help pull any excess drainage from the wound and allow your incision to heal properly. You may shower with this if you can keep the unit outside of the shower. If any bleeding or leakage is noted please call your doctor's office. This will remain on your incision for 7 days and then should be removed. This can be done yourself or by the home nursing staff if applicable. The entire unit is disposable once removed. Once removed, keep incision clean and dry. If redness or drainage is noted, please call your surgeon. IF INCISION IS LEAKING THROUGH DRESSING, CALL THE OFFICE . Hemovac will be removed in the office tomorrow. FOLLOW UP VISIT: If appointment is not already scheduled: Please call [facility] to make a follow-up appointment for 2 weeks after your surgery at . Stand-Alone Forms: My [facility] EZBOB, Smoking Cessation Medications and DC Order Prescriptions: New acetaminophen [Tylenol Extra Strength] 500 mg Tablet 1,000 mg PO Q8 Qty: 60 0RF Xarelto 10 mg Tablet 10 mg PO DAILY Qty: 30 0RF oxycodone 5 mg Tablet 5 - 10 mg PO .Q4h-6h MDD 6 PRN (Reason: pain) Qty: 30 0RF Rx Instructions: Ongoing therapy, Dr. Coronado supervising doxycycline hyclate 100 mg capsule 100 mg PO BID 7 Days Qty: 14 0RF Continued (DME) ResMed Mirage Quattro Mask See Rx Instructions .Route .MEDSUPPLY Qty: 1 0RF Rx Instructions: As directed (DME) CPAP Supplies See Rx Instructions .Route .MEDSUPPLY Qty: 2 0RF Rx Instructions: As directed- G47.33 LUIS (DME) Filters foam 1x2 inch See Rx Instructions .Route .MEDSUPPLY Qty: 30 5RF Rx Instructions: As directed G47.33 LUIS (DME) Head Gear for Mirage Quattro See Rx Instructions .Route .MEDSUPPLY Qty: 1 0RF Rx Instructions: As directed G47.33 LUIS (DME) Mirage mask , 8 ft tubing, headgear See Rx Instructions .Route .MEDSUPPLY Qty: 1 0RF Rx Instructions: As directed metformin 500 mg tablet See Rx Instructions .ROUTE .COMPLEX Qty: 90 1RF Dose Instruction: TAKE 1 TAB BY MOUTH IN THE EVENING Rx Instructions: TAKE 1 TAB BY MOUTH IN THE EVENING lisinopril 10 mg tablet 10 mg PO QPM bupropion HCl [Wellbutrin SR] 200 mg tablet sustained-release 12 hr See Rx Instructions .ROUTE .COMPLEX Rx Instructions: TAKE 1 TABLET BY MOUTH IN THE MORNING Discontinued diclofenac sodium 75 mg tablet,delayed release (DR/EC) 75 mg PO BID Qty: 60 2RF aspirin 81 mg Tablet,Delayed Release (Dr/Ec) 81 mg PO QAM Discharge Orders: Discharge Order (Routine); Ordered 06/26/23 Ordered By: Rohan Morillo/Other Patient Handouts: Oxycodone Oral Tablet, Doxycycline Oral Capsule, Total Knee Replacement Admission Data Admit Date/Time: 06/25/23 11:53 Attending Provider: Heath Coronado Admit Provider: Heath Coronado Primary Care Provider: Naresh Rider Other Providers: Adolfo Gannon [facility],Home Healthcare Other Interventions: Discharge Summary Assessment (RN) Last Done: 06/26/23 11:05
== END 2023-06-26 12:34 | disposition home or self-care (01) ==
LOC: 3E 06:25 → ASU 06:25

== ENCOUNTER 2023-12-11 17:51 | Inpatient (IN) ==
[2023-12-11] MEDS ORDERED: oxyCODONE/ACETAMINOPHEN 5mg/325mg TAB PO PRN (21:08)
[2023-12-11] MEDS ORDERED: GABAPENTIN 100 MG CAP PO PRN (21:16)
[2023-12-11] MEDS ORDERED: VANCOMYCIN CONSULT ACTIVE PRN (21:20)
[2023-12-11] MEDS ORDERED: VANCOMYCIN HCL 1,000 MG in SODIUM CHLORIDE 0.9% 250 ML IV SCH (21:30)
[2023-12-11] MEDS: SODIUM CHLORIDE 0.9% 1,000 ML IV SCH (21:45)
[2023-12-11] MEDS: VANCOMYCIN HCL 2,250 MG in SODIUM CHLORIDE 0.9% 500 ML IV ONE (21:50)
[2023-12-11 21:55] LABS: Basophils # (auto) 0.03 K/uL (0.00-0.20); Basophils % (auto) 0.5 %; Eosinophils # (auto) 0.26 K/uL (0.00-0.50); Hematocrit (blood only) 32.5 % (42.0-52.0); Hemoglobin 10.7 g/dl (14.0-18.0); Immature Granulocytes # (auto) 0.02 K/uL (0.01-0.20); Immature Granulocytes % (auto) 0.3 %; Lymphocytes # (auto) 0.66 K/uL (1.20-3.40); Lymphocytes % (auto) 10.2 %; Mean Corpuscular Hgb Conc 32.9 g/dL (32.0-36.0); Mean Corpuscular Volume 94.2 fL (80.0-100.0); Mean Platelet Volume 9.9 fL (9.4-12.4); Monocytes # (auto) 0.64 K/uL (0.11-0.59); Monocytes % (auto) 9.9 %; Neutrophils # (auto) 4.88 K/uL (1.40-6.50); Neutrophils % (auto) 75.1 %; Platelet Count 237 K/uL (130-400); RDW Coefficient of Variation 13.6 % (11.5-14.5); RDW Standard Deviation 46.9 fL (36.4-46.3); Red Blood Count 3.45 M/uL (4.70-6.10); White Blood Count 6.49 K/ul (4.8-10.8)
[2023-12-11 22:10] LABS: BUN Creatinine Ratio 16.8 (10-20); Calcium 9.2 mg/dl (8.6-10.3); Creatinine Clr Calc Pharmacy 84.9 ml/min; Est GFR (African American) 83.2 ml/min; Est GFR (Non-African American) 71.8 ml/min; Potassium 4.4 mmol/L (3.5-5.1)
--- NOTE | 2023-12-11 22:59 | History & Physical Report ---
Date of Service December 11, 2023 Assessment & Plan (1) Infection of total left knee replacement: Plan: Acute infection 6 weeks post staged knee replacement on left. Gram stain cultures pending. Patient admitted for IV antibiotics and likely irrigation debridement prepatellar bursa and irrigation debridement retention of implant polyethylene exchange, IV antibiotics, probable PICC line and home IV antibiotics 6 weeks. Encounter type: initial encounter Qualified Code(s): T84.54XA - Infection and inflammatory reaction due to internal left knee prosthesis, initial encounter (2) Infection of left prepatellar bursa: Admission and Anticipated Discharge Date Admission Date: December 11, 2023 History of Present Illness Chief Complaint: Left knee infection Primary Care Provider: Naresh Rider MD 58-year-old male status post second knee replacement end-stage bilateral knee replacement left knee most recent replacement. Postoperative. He had some mi nor scabbing over the incision but no drainage. He was covered postoperatively after discharge from the hospital with cefadroxil for a few weeks. The scabbed area resolved and patient progressed well in physical therapy until 4 days ago when he noticed some redness and increased warmth of his knee and was running some low-grade fevers. Saw his PCP pending reevaluation in the office who put him on clindamycin orally. Patient has had no substantial pain. Patient denies headaches, sweats, chills, double vision, blurred vision, cough, sore throat, dysphagia, chest pain, sob, wheezing, n/v/d/c, numbness, tingling, fatigue, urinary symptoms, mood disorders. ROS positive for low-grade fever less than 102 degrees. Allergies Allergy/AdvReac Type Severity Reaction Status Date / Time benzonatate Allergy Intermediate Hives Verified 12/10/23 11:12 celecoxib [From Celebrex] Allergy Intermediate Hives Verified 12/10/23 11:12 naproxen Allergy Intermediate Hives Verified 12/10/23 11:12 Penicillins Allergy Intermediate Hives Verified 12/10/23 11:12 Sulfa (Sulfonamide Allergy Intermediate Hives Verified 12/10/23 11:12 Antibiotics) Home Medications Medication Instructions Recorded Confirmed Type ResMed Mirage Quattro Mask #1 ea 03/07/20 12/11/23 Rx CPAP Supplies #2 ea 03/15/20 12/11/23 Rx Filters foam 1x2 inch #30 ea 03/15/20 12/11/23 Rx Head Gear for Mirage Quattro #1 ea 03/15/20 12/11/23 Rx Mirage mask , 8 ft tubing, headgear #1 ea 12/17/21 12/11/23 Rx gabapentin 100 mg capsule 100 mg PO TID PRN pain #180 caps 07/25/23 12/11/23 Rx metformin 500 mg tablet 500 mg PO QPM #90 tabs 07/25/23 12/11/23 Rx bupropion HCl 200 mg tablet,12 hr 100 mg PO DAILY 10/20/23 12/11/23 History sustained-release lisinopril 10 mg tablet 10 mg PO DAILY 10/20/23 12/11/23 History oxycodone 5 mg tablet 5 mg PO Q4H PRN pain #30 tabs 10/22/23 12/11/23 Rx polyethylene glycol 3350 17 gram 17 g PO DAILY PRN constipation #5 10/22/23 12/11/23 Rx oral powder packet (Miralax) ea Bifidobacterium infantis 4 mg 4 mg PO BID #60 caps 12/10/23 12/11/23 Rx capsule (Align) clindamycin HCl 300 mg capsule 300 mg PO Q6H #40 caps 12/10/23 12/11/23 Rx Past Med/Surg History Problem List (Updated 12/11/23 @ 23:03 by Heath Coronado MD) Infection of left prepatellar bursa Infection of total left knee replacement Infection of knee Status post left knee replacement Hypertension Status post total left knee replacement Osteoarthritis of left knee Post-operative pain Status post total right knee replacement Primary osteoarthritis of right knee De Quervain's tenosynovitis, right Ganglion, right wrist 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 BPH w/o urinary obs/LUTS History of colon polyps Prediabetes Taking Meformin NSAID long-term use Encounter for CDL (commercial driving license) exam Screening, lipid Health care maintenance Colon cancer screening Osteoarthritis, knee Benign essential hypertension (Acute) Depression (Chronic) Obstructive sleep apnea (Acute) Medical History (Updated 12/11/23 @ 23:03 by Heath Coronado MD) Osteoarthritis History of colon polyps Prediabetes BPH (benign prostatic hyperplasia) History of COVID-19 12/2021: symptoms resolved Anxiety "Mild" generalized anxiety Sleep apnea CPAP (compliant) Surgical History (Updated 11/22/23 @ 00:08 by Saqib López) History of total right knee replacement History of esophagogastroduodenoscopy (EGD) History of colonoscopy History of repair of right rotator cuff History of carpal tunnel release of both wrists History of ankle surgery Right, benign tumor removed behind ankle Left ankle surgery History of oral surgery Dental implants History of tooth extraction History of arthroscopy Right shoulder R/L knee Family History Father Family history of diabetes mellitus Stroke Mother Family history of diabetes mellitus Melanoma Other No family history of adverse response to anesthesia Social History Smoking Status: Never smoker Second Hand Exposure: No; Do You Dip or Chew Tobacco: No; Hx Alcohol Use: Yes Alcohol type: beer Hx Substance Use: No Preferred Language: [place] Communication Ability: Effective Visual Impairment: No Limitations Steam [employer] Records Clerk Required: No Beliefs That Will Affect Care: None Current Living Situation: Spouse Other Information That Helps Us Care for You: No Feels Safe at Home: Yes Safety Concerns: Feels Safe At This Time Childhood Exposure to Second-Hand Smoke: Yes (Brother) Seatbelt Use: sometimes Sunscreen Use: Yes Assistive Devices: Glasses Review of Systems All systems reviewed & are unremarkable except as noted in HPI & below Physical Exam Constitutional: WD/WN, vitals as above Respiratory: normal respiratory effort; no respiratory distress Cardiovascular: Rate/Rhythm: regular rate and regular rhythm Gastrointestinal (Abdomen): Abdominal obesity Musculoskeletal: Right knee healed incision moderate knee effusion good alignment good range of motion good stability no pain. Left knee has oval area of erythema surrounding the entire incision 6 8 mm wide by the total length of the incision from inferior to superior. No active draining. Fluid in the prepatellar bursa. This exam was pretty aspiration of the prepatellar bursa and knee joint and subsequent bandages placed in an [place]tw[place] wrap around the knee. Distal circulation sensorimotor exam intact Skin: no rashes, warm and dry Neurologic: normal touch/pain/proprioception Psychiatric: A+Ox3, euthymic affect Results & Data Vital Signs (Past 12 Hours) Vital Signs Temp Pulse Pulse Resp BP Pulse Ox O2 Del Method 12/11/23 22:33 68 18 98 12/11/23 19:25 36.8 C 86 18 125/71 96 Room Air Laboratory Results White blood cell count today 6.49 with 75% neutrophils. C-reactive protein 25.6 erythrocyte sedimentation rate 57 Diagnostic Findings X-rays demonstrate well-fixed well aligned total knee replacement no lucencies no loosening. Similar well aligned knee replacement opposite knee. Code Status & VTE Plan VTE Prophylaxis Plan VTE Prophylaxis will be ordered: Yes
[2023-12-12 07:07] LABS: Creatinine Clr Calc Pharmacy 110.3 ml/min; Est GFR (Non-African American) 95.8 ml/min
[2023-12-12] MEDS: VANCOMYCIN HCL 1,000 MG in SODIUM CHLORIDE 0.9% 250 ML IV SCH (08:14)
[2023-12-12] MEDS: buPROPion SR 100 MG TABCR PO SCH (08:15)
[2023-12-12] MEDS: ADVANCED PROBIOTIC 625 MG CAPSULE PO SCH (08:15)
--- NOTE | 2023-12-12 08:29 | Hospitalist Progress Note ---
Date of Service December 12, 2023 Assessment & Plan (1) Infection of knee: Plan: -started clinda 300mg q6h per PCP for concerns cellulitis and not deeper infxn on 12/09 after presenting with redness/fever 101.5F Reports no drainage from the wound at PCP office although a few weeks ago had some slight drainage ESR/CRP elevated 57, 25.[address] Coronado/orthopedics NPO for I&D left knee today ID consult pending Vancomycin IV (2) Status post left knee replacement: (3) Hypertension: (4) Prediabetes: (5) Depression: (6) Obstructive sleep apnea: Admission and Anticipated Discharge Date Admission Date: December 11, 2023 Results & Data Results & Data Vital Signs (Past 12 Hours) Vital Signs Pulse Resp Pulse Ox 12/12/23 02:34 65 18 97 12/11/23 22:33 68 18 98 Laboratory Results 12/12/23 12/11/23 Range/Units 06:13 21:38 WBC 6.49 (4.8-10.8) K/ul RBC 3.45 L (4.70-6.10) M/uL Hgb 10.7 L (14.0-18.0) g/dl Hct 32.5 L (42.0-52.0) % MCV 94.2 (80.0-100.0) fL MCH 31.0 (25.0-34.0) pg MCHC 32.9 (32.0-36.0) g/dL RDW Std Deviation 46.9 H (36.4-46.3) fL RDW Coeff of Jaimie 13.6 (11.5-14.5) % Plt Count 237 (130-400) K/uL MPV 9.9 (9.4-12.4) fL Immature Gran % (Auto) 0.3 % Neut % (Auto) 75.1 % Lymph % (Auto) 10.2 % Clinton % (Auto) 9.9 % Eos % (Auto) 4.0 % Baso % (Auto) 0.5 % Neut # (Auto) 4.88 (1.40-6.50) K/uL Lymph # (Auto) 0.66 L (1.20-3.40) K/uL Clinton # (Auto) 0.64 H (0.11-0.59) K/uL Eos # (Auto) 0.26 (0.00-0.50) K/uL Baso # (Auto) 0.03 (0.00-0.20) K/uL Immature Gran # (Auto) 0.02 (0.01-0.20) K/uL Sodium 138 (136-145) mmol/L Potassium 4.4 (3.5-5.1) mmol/L Chloride 105 (98-107) mmol/L Carbon Dioxide 26 (21-32) mmol/L Anion Gap 7 (3-11) BUN 19 (6-23) mg/dl Creatinine 0.87 1.13 (0.6-1.4) mg/dl Est Cr Clr Drug Dosing 110.3 84.9 ml/min Est GFR ( Amer) 111.0 83.2 ml/min Est GFR (Non-Af Amer) 95.8 71.8 ml/min BUN/Creatinine Ratio 16.8 (10-20) Glucose 104 H (70-99(Fasting)) mg/dl Calcium 9.2 (8.6-10.3) mg/dl PG Care Time/CCT Total # of Minutes Spent Total Time Spent with Patient: Total time spent is greater than 50% in coordination of care (as documented) at patient's floor/unit and/or counseling patient: Coding Diagnoses Infection of knee M00.9 Status post left knee replacement Z96.652 Primary hypertension I10 Hypertension type: primary hypertension Prediabetes R73.03 Persistent depressive disorder F34.1 Depression Type: persistent depressive disorder Obstructive sleep apnea G47.33 (3) Hypertension Hypertension type: primary hypertension Qualified Code(s): I10 - Essential (primary) hypertension (5) Depression Depression Type: persistent depressive disorder Qualified Code(s): F34.1 - Dysthymic disorder
--- NOTE | 2023-12-12 08:43 | Pharmacy Report ---
Pharmacy PK ABX Note - Date of Service December 12, 2023 - Assessment and Plan Assessment * 58 year old M receiving vancomycin for treatment of infected TKA. ID consult pending * Pertinent microbiologic data includes: possible I&D w cultures anticipated * SCr improved yesterday to today Plan Vancomycin * Loading dose: 2250 mg IV x 1 * Maintenance dose: 1500 mg IV every 12 hours * Regimen is predicted to achieve target AUC/JULIA of 400-600 mg/L.hr * Random level ordered for tomorrow AM Pharmacy will continue to follow and will adjust dose/frequency as necessary. Thank you. Pharmacy has transitioned to AUC monitoring for vancomycin. AUC/JULIA is the preferred PK/PD target and is associated with decreased risk of nephrotoxicity compared to traditional trough targets.
[2023-12-12 10:19] LABS: Hematocrit (blood only) 34.8 % (42.0-52.0); Hemoglobin 11.3 g/dl (14.0-18.0); Mean Corpuscular Hemoglobin 30.8 pg (25.0-34.0); Mean Corpuscular Hgb Conc 32.5 g/dL (32.0-36.0); Mean Corpuscular Volume 94.8 fL (80.0-100.0); Platelet Count 253 K/uL (130-400); RDW Coefficient of Variation 13.5 % (11.5-14.5); RDW Standard Deviation 47.5 fL (36.4-46.3); Red Blood Count 3.67 M/uL (4.70-6.10); White Blood Count 6.38 K/ul (4.8-10.8)
--- NOTE | 2023-12-12 10:30 | Hospitalist Consultation ---
Date of Consultation December 12, 2023 Assessment & Plan (1) Infection of total left knee replacement: Concerns for infection of LEFT knee replacement * started clinda 300mg q6h per PCP (per patient, took 5 doses) for concerns cellulitis and not deeper infxn on 12/09 after presenting with redness/fever 101.5F on Friday night ESR/CRP elevated 57, 25.[address] Coronado/orthopedics NPO for I&D left knee today ID consult pending Vancomycin IV-no reported hx MRSA/pseudomonas/drug resistance Blood cultures added as likely need for PICC/ongoing abx pending OR/cultures/ID eval however notable has already been on antibiotics Procal added to AM labs 0.08 CXR/EKG pre-op ordered- CXR no acute process, EKG NSR. Stable for surgery once timing determined by primary service CPAP HS, has in room Hospitalist service will follow along (2) Infection of left prepatellar bursa: (3) Infection of knee: (4) Sleep apnea: CPAP continued, has in room (5) Prediabetes: A1c 5.9 earlier this year, on metformin which has been held added BSG AC/HS and can add SSI if elevations however suspect will be fine without (unless getting steroids w/ procedure may need coverage) Gabapentin TID prn Can add B12 to AM labs given metformin use (6) Benign essential hypertension: Lisinopril ordered to start tomorrow if renal function/BP stable -- currently 135/78 Plan Thank you for allowing hospitalist service to participate in the care of Mr Moya. Hospitalist service will follow along. Please call with any questions/concerns. Supervising Physician Co-Signing Physician Notes The patient was seen by me. The chart was reviewed. Case discussed with LLUVIA Max. Agree with assessment and plan History of Present Illness Reason for Consultation: medical management Requesting Physician: Dr Coronado Attending Physician: Heath Coronado MD History of Present Illness 58yo male with PMHx significant for HTN, LUIS, pre-DM and recent LEFT knee arthoplasty with Dr Carson on 10/19 presenting for concerns for prosthetic joint infection and planning for I&D today. Eval this morning, waiting potential surgery but not sure on time or if being done tomorrow. Reports had been doing well post-op, doing outpatient physial therapy. He does note he got clinda after his RIGHT knee replacement in the past but got something different this time. No hx MRSA/pseudomonas/drug resistant bacteria. Reports on Friday night with fever 101.5C and called [facility] on Friday with message given redness along his incision but office didn't relay message that day and appt then went to PCP office for wellness visit where there were ongoing concerns for possible cellulitis and given rx for Clindamycin which the patient reports taking 5 doses. He was to bring "two vials" for culture testing which he reports he forgot He reports taking Tylenol at home and having some chills about 4-6hours after taking this but no further fevers. No blood cultures on admission and has received Vancomycin IV and suspect cultures could be altered but he has consult for ID pending which has not yet been done. Presently NPO and hoping for surgery, pain controlled at present time. 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 CPAP HS and has in room, did not have last night. Allergies Allergy/AdvReac Type Severity Reaction Status Date / Time benzonatate Allergy Intermediate Hives Verified 12/12/23 11:44 celecoxib [From Celebrex] Allergy Intermediate Hives Verified 12/12/23 11:44 naproxen Allergy Intermediate Hives Verified 12/12/23 11:44 Penicillins Allergy Intermediate Hives Verified 12/12/23 11:44 Sulfa (Sulfonamide Allergy Intermediate Hives Verified 12/12/23 11:44 Antibiotics) Home Medications Medication Instructions Recorded Confirmed Type ResMed Mirage Quattro Mask #1 ea 03/07/20 12/11/23 Rx CPAP Supplies #2 ea 03/15/20 12/11/23 Rx Filters foam 1x2 inch #30 ea 03/15/20 12/11/23 Rx Head Gear for Mirage Quattro #1 ea 03/15/20 12/11/23 Rx Mirage mask , 8 ft tubing, headgear #1 ea 12/17/21 12/11/23 Rx gabapentin 100 mg capsule 100 mg PO TID PRN pain #180 caps 07/25/23 12/11/23 Rx metformin 500 mg tablet 500 mg PO QPM #90 tabs 07/25/23 12/11/23 Rx bupropion HCl 200 mg tablet,12 hr 100 mg PO DAILY 10/20/23 12/11/23 History sustained-release lisinopril 10 mg tablet 10 mg PO DAILY 10/20/23 12/11/23 History oxycodone 5 mg tablet 5 mg PO Q4H PRN pain #30 tabs 10/22/23 12/11/23 Rx polyethylene glycol 3350 17 gram 17 g PO DAILY PRN constipation #5 10/22/23 12/11/23 Rx oral powder packet (Miralax) ea Bifidobacterium infantis 4 mg 4 mg PO BID #60 caps 12/10/23 12/11/23 Rx capsule (Align) clindamycin HCl 300 mg capsule 300 mg PO Q6H #40 caps 12/10/23 12/11/23 Rx Patient History Medical History Osteoarthritis History of colon polyps Prediabetes BPH (benign prostatic hyperplasia) History of COVID-19 12/2021: symptoms resolved Anxiety "Mild" generalized anxiety Sleep apnea CPAP (compliant) Surgical History History of total right knee replacement History of esophagogastroduodenoscopy (EGD) History of colonoscopy History of repair of right rotator cuff History of carpal tunnel release of both wrists History of ankle surgery Right, benign tumor removed behind ankle Left ankle surgery History of oral surgery Dental implants History of tooth extraction History of arthroscopy Right shoulder R/L knee Family History Father Family history of diabetes mellitus Stroke Mother Family history of diabetes mellitus Melanoma Other No family history of adverse response to anesthesia Social History Smoking Status: Never smoker Second Hand Exposure: No; Do You Dip or Chew Tobacco: No; Hx Alcohol Use: Yes Alcohol type: beer Hx Substance Use: No Preferred Language: Central African Communication Ability: Effective Visual Impairment: No Limitations 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 Beliefs That Will Affect Care: None Current Living Situation: Spouse Other Information That Helps Us Care for You: No Feels Safe at Home: Yes Safety Concerns: Feels Safe At This Time Childhood Exposure to Second-Hand Smoke: Yes (Brother) Seatbelt Use: sometimes Sunscreen Use: Yes Assistive Devices: Cane, Crutches and Walker Physical Exam Physical Exam: General: 58yo male sitting up in bed, in room, NAD, awaiting surgery HEENT: head atraumatic, normocephalic, mmm, trachea midline, +thick neck Resp: even/unlabored, no wcr, on room air CV: RRR, no m/r/g, no pitting edema/calf tenderness varicose veins on the LLE pulses palpable GI: +BS, slight distention but soft/nontender MSK/Neuro:not confused, answering questions appropriately prior R knee scar well healed, no issues LEFT knee w/ +erythema, +fluctuance anteriorly c/w fluid collection +warmth, +slight tenderness but not significant Psych: AOx3, cooperative and pleasant Results & Data Results & Data Vital Signs (Past 12 Hours) Vital Signs Temp Pulse Pulse Resp BP Pulse Ox O2 Del Method 12/12/23 08:36 36.7 C 76 16 146/87 H 99 Room Air 12/12/23 02:34 65 18 97 12/11/23 22:33 68 18 98 Laboratory Results 12/12/23 12/12/23 12/11/23 Range/Units 09:41 06:13 21:38 WBC 6.38 6.49 (4.8-10.8) K/ul RBC 3.67 L 3.45 L (4.70-6.10) M/uL Hgb 11.3 L 10.7 L (14.0-18.0) g/dl Hct 34.8 L 32.5 L (42.0-52.0) % MCV 94.8 94.2 (80.0-100.0) fL MCH 30.8 31.0 (25.0-34.0) pg MCHC 32.5 32.9 (32.0-36.0) g/dL RDW Std Deviation 47.5 H 46.9 H (36.4-46.3) fL RDW Coeff of Jaimie 13.5 13.6 (11.5-14.5) % Plt Count 253 237 (130-400) K/uL MPV 10.0 9.9 (9.4-12.4) fL Immature Gran % (Auto) 0.3 % Neut % (Auto) 75.1 % Lymph % (Auto) 10.2 % Elmore % (Auto) 9.9 % Eos % (Auto) 4.0 % Baso % (Auto) 0.5 % Neut # (Auto) 4.88 (1.40-6.50) K/uL Lymph # (Auto) 0.66 L (1.20-3.40) K/uL Elmore # (Auto) 0.64 H (0.11-0.59) K/uL Eos # (Auto) 0.26 (0.00-0.50) K/uL Baso # (Auto) 0.03 (0.00-0.20) K/uL Immature Gran # (Auto) 0.02 (0.01-0.20) K/uL Sodium 139 138 (136-145) mmol/L Potassium 4.6 4.4 (3.5-5.1) mmol/L Chloride 105 105 (98-107) mmol/L Carbon Dioxide 27 26 (21-32) mmol/L Anion Gap 7 7 (3-11) BUN 13 19 (6-23) mg/dl Creatinine 0.85 0.87 1.13 (0.6-1.4) mg/dl Est Cr Clr Drug Dosing 112.9 110.3 84.9 ml/min Est GFR ( Amer) 112.1 111.0 83.2 ml/min Est GFR (Non-Af Amer) 96.7 95.8 71.8 ml/min BUN/Creatinine Ratio 15.3 16.8 (10-20) Glucose 102 H 104 H (70-99(Fasting)) mg/dl Calcium 9.1 9.2 (8.6-10.3) mg/dl Magnesium 2.2 (1.7-2.4) mg/dl Procalcitonin 0.08 (0-0.5) ng/ml Diagnostic Findings Chest X-Ray 12/12/23 08:38 XR chest 1V portable HISTORY: 58 years-old Male pre-op preoperative exam. No acute chest complaints COMPARISON: 06/13/2023 TECHNIQUE: AP view of the chest FINDINGS: Cardiac silhouette is normal. Lungs are clear. No pneumothorax or pleural effusion. Spondylitic spurring of the spine. IMPRESSION: No acute process. ACT 112: Negative or not required by law. The above report was generated using voice recognition software. It may contain grammatical, syntax or spelling errors. Electronically signed by: Simone Ramos M.D. 12/12/2023 11:39 AM PG Care Time/CCT Total # of Minutes Spent Total Time Spent with Patient: Total time spent is greater than 50% in coordination of care (as documented) at patient's floor/unit and/or counseling patient: Coding Level of Care Code 41366 IN/OBS CONSULT LVL 3,45M Diagnoses Infection of total left knee replacement, initial encounter T84.54XA Encounter type: initial encounter Infection of left prepatellar bursa M71.162 Infection of knee M00.9 Sleep apnea G47.30 Prediabetes R73.03 Benign essential hypertension I10 (1) Infection of total left knee replacement Encounter type: initial encounter Qualified Code(s): T84.54XA - Infection and inflammatory reaction due to internal left knee prosthesis, initial encounter
[2023-12-12 10:31] LABS: BUN Creatinine Ratio 15.3 (10-20); Calcium 9.1 mg/dl (8.6-10.3); Creatinine Clr Calc Pharmacy 112.9 ml/min; Est GFR (African American) 112.1 ml/min; Est GFR (Non-African American) 96.7 ml/min; Magnesium 2.2 mg/dl (1.7-2.4); Potassium 4.6 mmol/L (3.5-5.1)
[2023-12-12] MEDS ORDERED: MIDAZOLAM HCL 1 MG/ML 2ML VIAL ONE (10:51)
[2023-12-12] MEDS ORDERED: ONDANSETRON INJ 2 MG/ML 2 ML VIAL ONE ×2 (10:51→16:07)
[2023-12-12] MEDS ORDERED: LIDOCAINE 2% 2 ML VIAL/AMP(20MG/ML) INFIL ONE (10:51)
[2023-12-12] MEDS ORDERED: fentaNYL citrate PF 100 MCG/2 ML VIAL ONE ×3 (10:51→16:19)
[2023-12-12] MEDS ORDERED: PROPOFOL IV EMULSION 10 MG/ML 20 ML VIAL IV ONE (10:51)
--- NOTE | 2023-12-12 11:42 | XRay Report ---
XR chest 1V portable HISTORY: 58 years-old Male pre-op preoperative exam. No acute chest complaints COMPARISON: 06/13/2023 TECHNIQUE: AP view of the chest FINDINGS: Cardiac silhouette is normal. Lungs are clear. No pneumothorax or pleural effusion. Spondylitic spurr ing of the spine. IMPRESSION: No acute process. ACT 112: Negative or not required by law. The above report was generated using voice recognition software. It may contain grammatical, syntax o r spelling errors. Electronically signed by: Simone Ramos M.D. 12/12/2023 11:39 AM
[2023-12-12] MEDS: LACTATED RINGER'S 1,000 ML IV SCH (11:46)
[2023-12-12] MEDS ORDERED: ROPIVACAINE 0.5% 5 MG/ML 30 ML VIAL ONE (12:22)
[2023-12-12] MEDS ORDERED: ONDANSETRON INJ 2 MG/ML 2 ML VIAL IV PRN (12:27)
[2023-12-12] MEDS ORDERED: ePHEDrine sulfate 50 MG/ML AMP IV PRN (12:27)
[2023-12-12] MEDS ORDERED: ATROPINE SULFATE 0.1 MG/ML 10ML SYR IV PRN (12:27)
--- NOTE | 2023-12-12 12:55 | Infectious Disease Consult ---
Date of Consultation December 12, 2023 Assessment & Plan (1) Infection of knee: (2) Status post left knee replacement: Plan 58-year-old male with PMH of HTN, LUIS, R Knee replacement ( 06/25/23), recent L knee replacement ( 10/20/23) who presents with a 2 week history of progressively worsening Left knee erythema and warmth. In the last few days the area has become more red and he had associated fever with T m 101.5 at home. . He was seen by his PCP and ortho for this. He was started on Clindamycin. He reports rash/hives with penicillins and Sulfa antibiotics. He took about 5 doses of antibiotics with minimal improvement in redness and swelling. He was referred by ortho to the hospital for I and D. He denies trauma to the area, falls, cough change in stool, urine habits, chest pain . He is pending OR today. On admission he is afebrile and HDS. BCx NG ( early). Labs with WBC 10.7, ESR 57, crp 25.6, procal 0.08, BUN 19, cr 0.99. CXr with no infiltrates. No knee imaging available. He was started ion IV vancomycin. Id consulted for left knee infection. On my initial exam his left knee is warm, red, with a fluctuant effusion with some discomfort on palpation. 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 Fllow up OP report IF evidence deep space infection or PJI/hardware involvement will need 6 weeks of pathogen directed therapy followed by oral suppression if hardware is retained. If this is a superficial infection without deep space or hardware involvement, a short course of oral antibiotics is expected if no bacteremia. Thank you for this consult. [facility] will not round over the weekend. Please call covering provider at [phone] with questions. Sabas Horta MD, MPH Infectious Disease [facility] Consultation Information Consultation was provided via telemedicine using two-way real-time interactive telecommunication between the patient and the telemedicine provider. For the duration of the visit, the provider was performing the assessment from a different facility than the patient. This includesuse of bluetooth stethoscope forauscultationperformed by the telepresenter that the telemedicine provider can hear if described in the physical exam. Beck Tender contact information: Please call [facility] Call Center . (Phone Number For Physician Use Only) After establishing a telemedicine visit, patient was: Patient was verified with two unique identifiers Time Spent with Patient: Initial => 75 min History of Present Illness Reason for Consultation: Septic total knee infection Requesting Physician: Heath Coronado MD Attending Physician: Heath Coronado MD History of Present Illness 58-year-old male with PMH of HTN, LUIS, R Knee replacement ( 06/25/23), recent L knee replacement ( 10/20/23) who presents with a 2 week history of progressively worsening Left knee erythema and warmth. In the last few days the area has become more red and he had associated fever with T m 101.5 at home. . He was seen by his PCP and ortho for this. He was started on Clindamycin. He reports rash/hives with penicillins and Sulfa antibiotics. He took about 5 doses of antibiotics with minimal improvement in redness and swelling. He was referred by ortho to the hospital for I and D. He denies trauma to the area, falls, cough change in stool, urine habits, chest pain . He is pending OR today. On admission he is afebrile and HDS. BCx NG ( early). Labs with WBC 10.7, ESR 57, crp 25.6, procal 0.08, BUN 19, cr 0.99. CXr with no infiltrates. No knee imaging available. He was started ion IV vancomycin. Id consulted for left knee infection. On my initial exam his left knee is warm, red, with a fluctuant effusion with some discomfort on palpation. Allergies Allergy/AdvReac Type Severity Reaction Status Date / Time benzonatate Allergy Intermediate Hives Verified 12/12/23 11:44 celecoxib [From Celebrex] Allergy Intermediate Hives Verified 12/12/23 11:44 naproxen Allergy Intermediate Hives Verified 12/12/23 11:44 Penicillins Allergy Intermediate Hives Verified 12/12/23 11:44 Sulfa (Sulfonamide Allergy Intermediate Hives Verified 12/12/23 11:44 Antibiotics) Home Medications Medication Instructions Recorded Confirmed Type ResMed Mirage Quattro Mask #1 ea 03/07/20 12/11/23 Rx CPAP Supplies #2 ea 03/15/20 12/11/23 Rx Filters foam 1x2 inch #30 ea 03/15/20 12/11/23 Rx Head Gear for Mirage Quattro #1 ea 03/15/20 12/11/23 Rx Mirage mask , 8 ft tubing, headgear #1 ea 12/17/21 12/11/23 Rx gabapentin 100 mg capsule 100 mg PO TID PRN pain #180 caps 07/25/23 12/11/23 Rx metformin 500 mg tablet 500 mg PO QPM #90 tabs 07/25/23 12/11/23 Rx bupropion HCl 200 mg tablet,12 hr 100 mg PO DAILY 10/20/23 12/11/23 History sustained-release lisinopril 10 mg tablet 10 mg PO DAILY 10/20/23 12/11/23 History oxycodone 5 mg tablet 5 mg PO Q4H PRN pain #30 tabs 10/22/23 12/11/23 Rx polyethylene glycol 3350 17 gram 17 g PO DAILY PRN constipation #5 10/22/23 12/11/23 Rx oral powder packet (Miralax) ea Bifidobacterium infantis 4 mg 4 mg PO BID #60 caps 12/10/23 12/11/23 Rx capsule (Align) clindamycin HCl 300 mg capsule 300 mg PO Q6H #40 caps 12/10/23 12/11/23 Rx Patient History Medical History Osteoarthritis History of colon polyps Prediabetes BPH (benign prostatic hyperplasia) History of COVID-19 12/2021: symptoms resolved Anxiety "Mild" generalized anxiety Sleep apnea CPAP (compliant) Surgical History History of total right knee replacement History of esophagogastroduodenoscopy (EGD) History of colonoscopy History of repair of right rotator cuff History of carpal tunnel release of both wrists History of ankle surgery Right, benign tumor removed behind ankle Left ankle surgery History of oral surgery Dental implants History of tooth extraction History of arthroscopy Right shoulder R/L knee Family History Father Family history of diabetes mellitus Stroke Mother Family history of diabetes mellitus Melanoma Other No family history of adverse response to anesthesia Social History Smoking Status: Never smoker Second Hand Exposure: No; Do You Dip or Chew Tobacco: No; Hx Alcohol Use: Yes Alcohol type: beer Hx Substance Use: No Preferred Language: Ukrainian Communication Ability: Effective Visual Impairment: No Limitations Commercial Credit Lead Required: No Beliefs That Will Affect Care: None Current Living Situation: Spouse Other Information That Helps Us Care for You: No Feels Safe at Home: Yes Safety Concerns: Feels Safe At This Time Childhood Exposure to Second-Hand Smoke: Yes (Brother) Seatbelt Use: sometimes Sunscreen Use: Yes Assistive Devices: Cane, Crutches and Walker Review of System A 10 point ROS obtained. Pertinent Positives as per HPI Physical Exam Physical Exam: Gen- NAD, laying in bed Neck- supple HEENT- anicteric sclera Lung-No increased work of breathing Abd- soft Ext - Left knee effusion with slight fluctuance, with surrounding erythema, tenderness and warm. Incision intact. Psych- Normal mood Psych- AAO*3 Results & Data Vital Signs (Past 12 Hours) Vital Signs Temp Pulse Pulse Resp BP Pulse Ox O2 Del Method 12/12/23 11:30 37.1 C 72 18 135/78 98 Room Air 12/12/23 08:36 36.7 C 76 16 146/87 H 99 Room Air 12/12/23 02:34 65 18 97 Laboratory Results Laboratory Results - last 48 hr 12/11/23 12/12/23 12/12/23 21:38 06:13 09:41 WBC 6.49 6.38 RBC 3.45 L 3.67 L Hgb 10.7 L 11.3 L Hct 32.5 L 34.8 L MCV 94.2 94.8 MCH 31.0 30.8 MCHC 32.9 32.5 RDW Std Deviation 46.9 H 47.5 H RDW Coeff of Jaimie 13.6 13.5 Plt Count 237 253 MPV 9.9 10.0 Immature Gran % (Auto) 0.3 Neut % (Auto) 75.1 Lymph % (Auto) 10.2 Loving % (Auto) 9.9 Eos % (Auto) 4.0 Baso % (Auto) 0.5 Neut # (Auto) 4.88 Lymph # (Auto) 0.66 L Loving # (Auto) 0.64 H Eos # (Auto) 0.26 Baso # (Auto) 0.03 Immature Gran # (Auto) 0.02 Sodium 138 139 Potassium 4.4 4.6 Chloride 105 105 Carbon Dioxide 26 27 Anion Gap 7 7 BUN 19 13 Creatinine 1.13 0.87 0.85 Est Cr Clr Drug Dosing 84.9 110.3 112.9 Est GFR ( Amer) 83.2 111.0 112.1 Est GFR (Non-Af Amer) 71.8 95.8 96.7 BUN/Creatinine Ratio 16.8 15.3 Glucose 104 H 102 H Calcium 9.2 9.1 Magnesium 2.2 Procalcitonin 0.08 Diagnostic Findings Chest X-Ray 12/12/23 08:38 XR chest 1V portable HISTORY: 58 years-old Male pre-op preoperative exam. No acute chest complaints COMPARISON: 06/13/2023 TECHNIQUE: AP view of the chest FINDINGS: Cardiac silhouette is normal. Lungs are clear. No pneumothorax or pleural effusion. Spondylitic spurring of the spine. IMPRESSION: No acute process. ACT 112: Negative or not required by law. The above report was generated using voice recognition software. It may contain grammatical, syntax or spelling errors. Electronically signed by: Simone Ramos M.D. 12/12/2023 11:39 AM Medications Administered Home Medications Medication Instructions Recorded Confirmed Last Taken ResMed Mirage Quattro Mask #1 ea 03/07/20 12/11/23 Unknown CPAP Supplies #2 ea 03/15/20 12/11/23 Unknown Filters foam 1x2 inch #30 ea 03/15/20 12/11/23 Unknown Head Gear for Mirage Quattro #1 ea 03/15/20 12/11/23 Unknown Mirage mask , 8 ft tubing, headgear #1 ea 12/17/21 12/11/23 Unknown gabapentin 100 mg capsule 100 mg PO TID PRN pain #180 caps 07/25/23 12/11/23 12/11/23 300 mg metformin 500 mg tablet 500 mg PO QPM #90 tabs 07/25/23 12/11/23 12/10/23 18:00 500 mg bupropion HCl 200 mg tablet,12 hr 100 mg PO DAILY 10/20/23 12/11/23 12/11/23 07:00 sustained-release 100 mg lisinopril 10 mg tablet 10 mg PO DAILY 10/20/23 12/11/23 12/11/23 07:00 10 mg oxycodone 5 mg tablet 5 mg PO Q4H PRN pain #30 tabs 10/22/23 12/11/23 2 Months Ago ~10/11/23 polyethylene glycol 3350 17 gram 17 g PO DAILY PRN constipation #5 10/22/23 12/11/23 2 Months Ago oral powder packet (Miralax) ea ~10/11/23 Bifidobacterium infantis 4 mg 4 mg PO BID #60 caps 12/10/23 12/11/23 Unknown capsule (Align) clindamycin HCl 300 mg capsule 300 mg PO Q6H #40 caps 12/10/23 12/11/23 12/11/23 12:00 Active Medications Generic Name Dose Route Start Last Admin Trade Name Freq PRN Reason Stop Dose Admin Bupropion HCl 100 mg 12/12/23 09:00 12/12/23 08:15 Bupropion Sr 100 Mg Tabcr PO 01/11/24 08:59 100 mg DAILY RIP Administration Sodium Chloride 1,000 mls @ 100 mls/hr 12/11/23 21:15 12/12/23 11:47 Nss IV 01/10/24 21:14 0 mls/hr .Q10H RIP Infusion Lactated Ringer's 1,000 mls @ 0 mls/hr 12/12/23 12:00 12/12/23 11:46 Lr IV 01/11/24 11:59 15 mls/hr .Q0M RIP Administration KVO Lactobacillus Acidophilus 1,250 mg 12/12/23 09:00 12/12/23 08:15 Advanced Probiotic 625 Mg Capsule PO 01/11/24 08:59 1,250 mg DAILY RIP Administration
--- NOTE | 2023-12-12 12:55 | Electrocardiogram Report ---
Test Reason : Blood Pressure : / mmHG Vent. Rate : 073 BPM Atrial Rate : 073 BPM P-R Int : 176 ms QRS Dur : 108 ms QT Int : 374 ms P-R-T Axes : 044 007 022 degrees QTc Int : 412 ms Normal sinus rhythm Normal ECG When compared with ECG of 20-OCT-2023 05:41, No significant change was found Confirmed by Dex Boss ([id number]) on 12/12/2023 12:54:33 PM Referred By: Heath Coronado Confirmed By:Royce Boss
--- NOTE | 2023-12-12 13:11 | History & Physical Bridge Note ---
Date of Service December 12, 2023 History & Physical Bridge Note I have examined the patient, reviewed the History & Physical and in the interval since the performance of the History & Physical I have noted the following changes of clinical significance: no changes noted
[2023-12-12] MEDS ORDERED: KETAMINE HCL 10MG/ML SYR ONE (13:54)
[2023-12-12] MEDS ORDERED: ROCURONIUM BROMIDE 10 MG/ML 5 ML VIAL IV ONE ×2 (13:54→14:42)
[2023-12-12] MEDS: ceFAZolin 330 MG/ML 1 GM VIAL ONE (14:18)
[2023-12-12] MEDS: VANCOMYCIN HCL 1000MG/20ML VIAL ONE (14:19)
[2023-12-12] MEDS: HYDROmorphone INJ 2 MG/ML SYR/VIAL IV PRN (16:28)
--- NOTE | 2023-12-12 16:32 | Post Operative Brief Note ---
Immediate Post Op Note Date of Surgery December 12, 2023 Pre & Post Diagnosis Preoperative diagnosis: Acute septic left total knee replacement and septic prepatellar bursitis. Postop diagnosis: Same with medial retinacular tear. Operation Date: 12/12/23 07:00 <No data on this case meets the specified criteria> I identified the patient and participated in the time-out.: Yes Procedure Operation Date: 12/12/23 07:00 <No data on this case meets the specified criteria> Surgeon Heath Coronado MD Multi Punch Operator None Estimated Blood Loss 25 Findings Consistent with Post-Op Diagnosis Specimens Multiple cultures including soft tissue cultures Drains Hemovac Drain Anesthesia Type General Regional Complications none Disposition Disposition: Recovery Room Overlapping Procedure I was immediately available: during the entire case.
[2023-12-12] MEDS ORDERED: HYDROmorphone INJ 0.5 MG/0.5 ML SYR IV PRN ×2 (16:55→17:00)
[2023-12-12] MEDS: HYDROmorphone INJ 2 MG/ML SYR/VIAL ONE (16:58)
--- NOTE | 2023-12-12 17:19 | Operative Report ---
Post Operative Report Pre & Post Diagnosis Preoperative diagnosis: Acute septic left total knee replacement, septic prepatellar bursitis Postoperative diagnosis: Same, medial retinacular failed repair secondary to infection. Operation Date: 12/12/23 07:00 <No data on this case meets the specified criteria> I identified the patient and participated in the time-out.: Yes Procedure Left knee incision, drainage, irrigation, debridement, prepatellar bursa and left knee joint with tibial polyethylene exchange and placement of Stimulan antibiotic beads and revision repair medial retinaculum and closure over drains knee joint and prepatellar bursa. Operation Date: 12/12/23 07:00 <No data on this case meets the specified criteria> Surgeon Heath Coronado MD Insulation Board Calender Operator None Estimated Blood Loss 25 Findings Consistent with Post-Op Diagnosis Specimens Multiple swab cultures prepatellar bursa and joint and soft tissue prepatellar bursa and joint and cultures polyethylene tibial implant interface. Drains 3 Hemovac Anesthesia Type General Regional Complications none Disposition Disposition: Recovery Room Indications 58-year-old male who had staged bilateral knee replacements most recently his left 6 weeks ago and developed acute infection involving his prepatellar bursa and knee joint. I did aspirate this in clinic yesterday and patient was instructed to bring the collection of fluid from both aspirates to [facility] and he left them in his car and they were contaminated after that. He continues to have evidence of infected knee replacement so we are proceeding with DAIR procedure Description of Procedure Patient taken to the operating room and had general anesthetic and placed supine on the operating table. Pneumatic tourniquet was placed by his upper thigh. Left knee exam I demonstrate he had good range of motion and stable knee no drainage but erythema around the entire incision and fluid collection in the prepatellar bursa. Leg was sterilely prepped and draped with ChloraPrep. Leg was elevated and then the tourniquet was raised to 300 mmHg. Incision into the prepatellar bursa demonstrated cloudy fluid with necrotic fat consistent with i nfection. There was a defect in the medial retinaculum extending into the knee joint with deep infection. Cultures were obtained soft tissue bursa and swabs in the prepatellar bursa area cultures were obtained in the knee joint area. Subcutaneous flaps were elevated and the knee incision was extended slightly proximally and distally from the original surgical incision. The medial retinacular tear was around the mid and superior medial aspect of the patella. This was extended up into the mid third of the quadriceps tendon and down to the medial tibia. Electrocautery synovectomy was performed. This allowed exposure and retractors to remove the tibial polyethylene with a curved osteotome and tenaculum. Membrane underneath the tibial component was swabbed and membrane tissue and some of the posterior capsular synovial tissue was sent for culture as well. Also some synovial tissue of the knee joint was sent for culture. After all this was performed and I irrigated the knee copiously with pulsatile lavage antibiotic solution with Ancef in the solution. At this point Versajet was used to do a thorough debridement of all the tendon edges of the prepatellar bursa area the gutters and the joint posterior capsular area. All membrane was removed from the notch area. All membrane was removed from around the tibial component. Further irrigation with more antibiotic solution with Ancef was performed for a total of 6 L. Trial reduction was performed then the 10 F CPS component still had good stability so we continue with the same component that he had previously. A Betadine scrub with scrub brush was performed to the metallic areas. The knee was then soaked with 3-minute Betadine soak. Then this was irrigated out with antibiotic with Ancef for total of 12 L and then we reprepped and draped changed all gloves and gowns with full precaution. The knee was irrigated with Xperience and then the tibial polyethylene was placed which was the 10 F CPS left poly. The Stimulan beads had been mixed with 1 g vancomycin were placed into the suprapatellar region in the gutters. 2 drains were brought out laterally connected to a Hemovac. The quadriceps tendon medial retinaculum were repaired with #1 bacterial resistant Vicryl suture. Took the knee through 0 through 90 degrees range of motion and repair was secure. Third Hemovac drain was placed into the prepatellar subcutaneous area area and then the subcutaneous tissues were repaired with interrupted 2 oh bacterial resistant sutures and skin was closed with surgical rehana and a Silverlon occlusive dressing was applied. Compressive Webril bandage was applied over the Silverlon followed by Antwan wrap from the foot to the thigh. Tourniquet was used for 2 hours during the procedure. Patient had normal capillary fill to extremity at the end of the procedure and Toller procedure well. I attest to the content of the Intraoperative Record and any orders documented therein. Any exceptions are noted below.
--- NOTE | 2023-12-12 17:28 | Anesthesiology Progress Note ---
Date of Service December 12, 2023 Anesthesia Post Procedure Vital Signs Vital Signs: Temp Pulse Pulse Pulse Resp BP Pulse Ox 12/12/23 17:05 86 20 140/86 100 12/12/23 16:55 69 12 145/83 H 100 12/12/23 16:45 86 19 137/73 100 12/12/23 16:35 78 16 145/87 H 100 12/12/23 16:27 36.5 C 83 15 143/90 H 100 12/12/23 11:30 37.1 C 72 18 135/78 98 12/12/23 08:36 36.7 C 76 16 146/87 H 99 12/12/23 02:34 65 18 97 12/11/23 22:33 68 18 98 12/11/23 19:25 36.8 C 86 18 125/71 96 O2 Del Method O2 Flow Rate 12/12/23 17:05 Nasal Cannula 2 12/12/23 16:55 Nasal Cannula 2 12/12/23 16:45 Nasal Cannula 2 12/12/23 16:35 Oxymask 5 12/12/23 16:27 Oxymask 5 12/12/23 11:30 Room Air 12/12/23 08:36 Room Air 12/12/23 02:34 12/11/23 22:33 12/11/23 19:25 Room Air Pain Intensity Left Knee: Pain Intensity: 5 Transfer of Care Handoff Completed per policy Notes Mental Status: alert / awake / arousable and participated in evaluation Patient Amnestic to Procedure: Yes Nausea / Vomiting: adequately controlled Pain: adequately controlled Airway Patency, RR, SpO2: stable & adequate BP & HR: stable & adequate Hydration State: stable & adequate Anesthetic Complications: no major complications apparent and Pt Satisfied with anesthetic care
[2023-12-12] MEDS: VANCOMYCIN HCL 1,500 MG in SODIUM CHLORIDE 0.9% 500 ML IV SCH (19:41)
[2023-12-12] MEDS: ACETAMINOPHEN 325 MG TAB PO PRN (20:54)
[2023-12-12] MEDS: KETOROLAC TROMETHAMINE 15 MG/ML VIAL IV ONE (21:35)
[2023-12-13] MEDS: oxyCODONE HCL IR 5 MG TAB (IMMEDIATE RELEASE) PO PRN (02:40)
[2023-12-13 07:05] LABS: Basophils # (auto) 0.06 K/uL (0.00-0.20); Basophils % (auto) 0.8 %; Eosinophils # (auto) 0.23 K/uL (0.00-0.50); Eosinophils % (auto) 3.2 %; Hematocrit (blood only) 31.6 % (42.0-52.0); Hemoglobin 10.1 g/dl (14.0-18.0); Immature Granulocytes # (auto) 0.03 K/uL (0.01-0.20); Immature Granulocytes % (auto) 0.4 %; Lymphocytes # (auto) 0.88 K/uL (1.20-3.40); Lymphocytes % (auto) 12.2 %; Mean Corpuscular Hemoglobin 30.3 pg (25.0-34.0); Mean Corpuscular Volume 94.9 fL (80.0-100.0); Mean Platelet Volume 9.8 fL (9.4-12.4); Monocytes # (auto) 0.86 K/uL (0.11-0.59); Monocytes % (auto) 11.9 %; Neutrophils # (auto) 5.15 K/uL (1.40-6.50); Neutrophils % (auto) 71.5 %; Platelet Count 244 K/uL (130-400); RDW Coefficient of Variation 13.4 % (11.5-14.5); RDW Standard Deviation 46.8 fL (36.4-46.3); Red Blood Count 3.33 M/uL (4.70-6.10); White Blood Count 7.21 K/ul (4.8-10.8)
[2023-12-13 07:16] LABS: BUN Creatinine Ratio 9.6 (10-20); C Reactive Protein 6.97 mg/dl (0-0.5); Calcium 8.8 mg/dl (8.6-10.3); Creatinine Clr Calc Pharmacy 115.6 ml/min; Est GFR (African American) 113.2 ml/min; Est GFR (Non-African American) 97.7 ml/min; Potassium 4.2 mmol/L (3.5-5.1)
--- NOTE | 2023-12-13 08:11 | Orthopedic Progress Note ---
Date of Service December 13, 2023 Assessment & Plan (1) Infection of total left knee replacement: Plan: POD #1 s/p Left knee incision, drainage, irrigation, debridement, prepatellar bursa and left knee joint with tibial polyethylene exchange and placement of Stimulan antibiotic beads and revision repair medial retinaculum and closure over drains knee joint and prepatellar bursa. Intraoperative Gram stain and cultures are pending. The patient was on oral clindamycin prior to admission and on IV vancomycin prior to surgery. We discussed that these cultures may not show any bacteria. Continue the Hemovac drain. 1 drain did not have any drainage and the other drained approximately 100 cc since surgery. PT/OTweight-bear as tolerated on the left lower extremity. Must wear the knee immobilizer while ambulating. The knee immobilizer may be off for range of motion. No range of motion past 90 degrees of flexion. Pain controlthe patient states he had great pain control with Toradol at his last visit. Will do a 24-hour stop of Toradol. Discharge planningawaiting cultures and sensitivities. Appreciate ID input. Once cultures are finalized and antibiotic plan is finalized, the patient will be discharged. We discussed probable PICC line for 6 weeks of antibiotic therapy. Admission and Anticipated Discharge Date Admission Date: December 11, 2023 Subjective The patient is postop day #1 from a left knee I&D, poly exchange. Overall, the pain is controlled in his left knee but he had better pain control at his previous visit with Toradol. He has not been out of bed to this point. Denies chest pain, shortness of breath, lightheadedness. No new complaints today. Physical Exam Constitutional: WD/WN, vitals as above no acute distress (Lying comfortably in bed) Musculoskeletal: Knee: + surgical incision (Left knee dressing C/D/I) and + surgical drain present (100 cc total from Hemovac) Neurologic: normal touch/pain/proprioception Psychiatric: A+Ox3, euthymic affect Speech: normal rate/rhythm/volume of speech Results & Data Vital Signs (Past 12 Hours) Vital Signs Temp Pulse Resp BP Pulse Ox O2 Del Method 12/13/23 07:35 36.8 C 78 16 137/78 98 Room Air 12/13/23 03:29 36.7 C 76 16 119/74 95 Room Air 12/12/23 23:25 36.9 C 88 16 135/82 99 Room Air 12/12/23 21:43 36.5 C 82 18 138/79 95 Room Air 12/12/23 20:36 36.4 C L 89 18 128/82 97 Room Air Laboratory Results Laboratory Tests 12/10/23 12/13/23 11:50 06:27 Hgb 10.1 L Hct 31.6 L Plt Count 244 ESR 62 H Sodium 137 Potassium 4.2 Chloride 103 BUN 8 Creatinine 0.83 C-Reactive Protein 25.60 H 6.97 H (1) Infection of total left knee replacement Encounter type: initial encounter Qualified Code(s): T84.54XA - Infection and inflammatory reaction due to internal left knee prosthesis, initial encounter
[2023-12-13] MEDS: RIVAROXABAN 10 MG TABLET PO SCH (08:12)
[2023-12-13] MEDS: lisinopril 10 MG TAB PO SCH (08:13)
--- NOTE | 2023-12-13 08:50 | Hospitalist Progress Note ---
Date of Service December 13, 2023 Assessment & Plan (1) Infection of total left knee replacement: Plan: Concerns for infection of LEFT knee replacement * started clinda 300mg q6h per PCP (per patient, took 5 doses) for concerns cellulitis and not deeper infxn on 12/09 after presenting with redness/fever 101.5F on Friday night ESR/CRP elevated 57, 25.[address] Coronado/orthopedics NPO for I&D left knee today ID consult pending Vancomycin IV-no reported hx MRSA/pseudomonas/drug resistance Blood cultures added as likely need for PICC/ongoing abx pending OR/cultures/ID eval however notable has already been on antibiotics Procal added to AM labs 0.08 CXR/EKG pre-op ordered- CXR no acute process, EKG NSR. Stable for surgery once timing determined by primary service CPAP HS, has in room 12/12 POD #1 s/p Left knee incision, drainage, irrigation, debridement, prepatellar bursa and left knee joint with tibial polyethylene exchange and placement of Stimulan antibiotic beads and revision repair medial retinaculum and closure over drains knee joint and prepatellar bursa. WBC wnl, afebrile Hgb 11.3--> 10.1, acute blood loss anemia from surgery as well as dilutional from IVF. No lightheaded/dizzy/CP/SOB. Monitor hemovac output OR cxs -- FOUR of seven cx w/ GPC/staph species this morning Vancomycin IV continued to cover but if negative for MRSA will be able to de- escalate Blood cultures pending, NGTD noting did have PO abx and dose Vanco prior to such ID on consult PICC line consent obtained by primary - messaged to see if wanting to wait for blood cultures to remain negative in AM or if ok w/ placing today DVT proph: Xarelto Likely going to need longr course abx given such. His R knee looks good w.o any evidence for infection Home lisinopril resumed for today given stable BP/renal function. BSG AC/HS checks acceptable and given pre-DM will discontinue as not needing coverage presently (2) Infection of left prepatellar bursa: Plan: s/p bursectomy (3) Infection of knee: (4) Sleep apnea: Plan: CPAP HS, has unit in the room (5) Prediabetes: Plan: A1c 5.9 earlier this year, on metformin which has been held added BSG AC/HS and can add SSI if elevations however suspect will be fine without (unless getting steroids w/ procedure may need coverage) Gabapentin TID prn Can add B12 to AM labs given metformin use as was order stop by primary in transfer routine BSG AC/HS stopped given no significant elevation and no need for coverage (6) Benign essential hypertension: Plan: Chronic, stable 137/78 Lisinopril held while NPO for OR 12/11, resumed for this morning given stable renal function and no hypotension Plan Thank you for allowing hospitalist service to participate in the care of Mr Moya. Hospitalist service will follow along. Please call with any questions/concerns. Admission and Anticipated Discharge Date Admission Date: December 11, 2023 Supervising Physician Co-Signing Physician Notes The patient was not seen by me. The chart was reviewed. Case discussed with LLUVIA Max. Agree with assessment and plan Subjective Evaluated this morning, sitting up in bed. Reports already seen by orthopedics and consent for PICC. MEssaged primary to see if wanting to wait for blood cultures to be neg tomorrow or if ok w/ placing today. Patient having decent amount of pain compared to prior. Hemovac one without much drainage and another w 100cc already. Anticipating [facility] abx at [facility], Cm to follow but anticipate staying til friday til arranged. ID on consult/following and discussed prelim w/ staph but will monitor for MRSA but remains on Vancomycin. No fever/chills, no chest pain, shortness of breath. Questions/concerns addressed at this time. Physical Exam Physical Exam: General: 58yo male sitting up in bed, NAD HEENT: head atraumatic, normocephalic, mmm, trachea midline, +thick neck Resp: even/unlabored, no wcr, on room air 98% CV: RRR, no m/r/g, no pitting edema/calf tenderness. varicose veins on the LLE. pulses palpable GI: +BS, slight distention but soft/nontender MSK/Neuro:not confused, answering questions appropriately prior R knee scar well healed, no issues LEFT w/ dressing in place/immobilizer, hemovac x 2. compartments soft/supple, calves nontender, senstation intact Psych: AOx3, cooperative and pleasant Results & Data Results & Data Vital Signs (Past 12 Hours) Vital Signs Temp Pulse Resp BP Pulse Ox O2 Del Method 12/13/23 07:35 36.8 C 78 16 137/78 98 Room Air 12/13/23 03:29 36.7 C 76 16 119/74 95 Room Air 12/12/23 23:25 36.9 C 88 16 135/82 99 Room Air 12/12/23 21:43 36.5 C 82 18 138/79 95 Room Air Laboratory Results 12/13/23 12/13/23 12/12/23 Range/Units 08:25 06:27 21:35 WBC 7.21 (4.8-10.8) K/ul RBC 3.33 L (4.70-6.10) M/uL Hgb 10.1 L (14.0-18.0) g/dl Hct 31.6 L (42.0-52.0) % MCV 94.9 (80.0-100.0) fL MCH 30.3 (25.0-34.0) pg MCHC 32.0 (32.0-36.0) g/dL RDW Std Deviation 46.8 H (36.4-46.3) fL RDW Coeff of Jaimie 13.4 (11.5-14.5) % Plt Count 244 (130-400) K/uL MPV 9.8 (9.4-12.4) fL Immature Gran % (Auto) 0.4 % Neut % (Auto) 71.5 % Lymph % (Auto) 12.2 % [place] % (Auto) 11.9 % Eos % (Auto) 3.2 % Baso % (Auto) 0.8 % Neut # (Auto) 5.15 (1.40-6.50) K/uL Lymph # (Auto) 0.88 L (1.20-3.40) K/uL [place] # (Auto) 0.86 H (0.11-0.59) K/uL Eos # (Auto) 0.23 (0.00-0.50) K/uL Baso # (Auto) 0.06 (0.00-0.20) K/uL Immature Gran # (Auto) 0.03 (0.01-0.20) K/uL ESR 62 H (0-20) mm/hr Sodium 137 (136-145) mmol/L Potassium 4.2 (3.5-5.1) mmol/L Chloride 103 (98-107) mmol/L Carbon Dioxide 29 (21-32) mmol/L Anion Gap 5 (3-11) BUN 8 (6-23) mg/dl Creatinine 0.83 (0.6-1.4) mg/dl Est Cr Clr Drug Dosing 115.6 ml/min Est GFR ( Amer) 113.2 ml/min Est GFR (Non-Af Amer) 97.7 ml/min BUN/Creatinine Ratio 9.6 L (10-20) Glucose 100 H (70-99(Fasting)) mg/dl POC Glucose 159 H (70-99) mg/dl Calcium 8.8 (8.6-10.3) mg/dl Magnesium (1.7-2.4) mg/dl C-Reactive Protein 6.97 H (0-0.5) mg/dl Procalcitonin (0-0.5) ng/ml Random Vancomycin 8.9 L (10-20) mcg/ml 12/12/23 12/12/23 Range/Units 16:29 09:41 WBC 6.38 (4.8-10.8) K/ul RBC 3.67 L (4.70-6.10) M/uL Hgb 11.3 L (14.0-18.0) g/dl Hct 34.8 L (42.0-52.0) % MCV 94.8 (80.0-100.0) fL MCH 30.8 (25.0-34.0) pg MCHC 32.5 (32.0-36.0) g/dL RDW Std Deviation 47.5 H (36.4-46.3) fL RDW Coeff of Jaimie 13.5 (11.5-14.5) % Plt Count 253 (130-400) K/uL MPV 10.0 (9.4-12.4) fL Immature Gran % (Auto) % Neut % (Auto) % Lymph % (Auto) % [place] % (Auto) % Eos % (Auto) % Baso % (Auto) % Neut # (Auto) (1.40-6.50) K/uL Lymph # (Auto) (1.20-3.40) K/uL [place] # (Auto) (0.11-0.59) K/uL Eos # (Auto) (0.00-0.50) K/uL Baso # (Auto) (0.00-0.20) K/uL Immature Gran # (Auto) (0.01-0.20) K/uL ESR (0-20) mm/hr Sodium 139 (136-145) mmol/L Potassium 4.6 (3.5-5.1) mmol/L Chloride 105 (98-107) mmol/L Carbon Dioxide 27 (21-32) mmol/L Anion Gap 7 (3-11) BUN 13 (6-23) mg/dl Creatinine 0.85 (0.6-1.4) mg/dl Est Cr Clr Drug Dosing 112.9 ml/min Est GFR ( Amer) 112.1 ml/min Est GFR (Non-Af Amer) 96.7 ml/min BUN/Creatinine Ratio 15.3 (10-20) Glucose 102 H (70-99(Fasting)) mg/dl POC Glucose 140 H (70-99) mg/dl Calcium 9.1 (8.6-10.3) mg/dl Magnesium 2.2 (1.7-2.4) mg/dl C-Reactive Protein (0-0.5) mg/dl Procalcitonin 0.08 (0-0.5) ng/ml Random Vancomycin (10-20) mcg/ml Diagnostic Findings Chest X-Ray 12/12/23 08:38 XR chest 1V portable HISTORY: 58 years-old Male pre-op preoperative exam. No acute chest complaints COMPARISON: 06/13/2023 TECHNIQUE: AP view of the chest FINDINGS: Cardiac silhouette is normal. Lungs are clear. No pneumothorax or pleural effusion. Spondylitic spurring of the spine. IMPRESSION: No acute process. ACT 112: Negative or not required by law. The above report was generated using voice recognition software. It may contain grammatical, syntax or spelling errors. Electronically signed by: Simone Ramos M.D. 12/12/2023 11:39 AM PG Care Time/CCT Total # of Minutes Spent Total Time Spent with Patient: Total time spent is greater than 50% in coordination of care (as documented) at patient's floor/unit and/or counseling patient: Coding Level of Care Code 04947 SUB INP/OBS CARE MIN Diagnoses Infection of total left knee replacement, initial encounter T84.54XA Encounter type: initial encounter Infection of left prepatellar bursa M71.162 Infection of knee M00.9 Sleep apnea G47.30 Prediabetes R73.03 Benign essential hypertension I10 (1) Infection of total left knee replacement Encounter type: initial encounter Qualified Code(s): T84.54XA - Infection and inflammatory reaction due to internal left knee prosthesis, initial encounter
[2023-12-13] MEDS: VANCOMYCIN LEVEL ONE (10:15)
--- NOTE | 2023-12-13 11:02 | Pharmacy Report ---
Pharmacy PK ABX Note - Date of Service December 13, 2023 - Assessment and Plan Assessment 12/12: Left Knee cultures growing: GPC in 2, staph species in 2- awaiting further identification/sensitivities. Per ID plan for 6 weeks of treatment if deep seeded infection with retained hardware. Blood cultures currently still pending. Random level this morning 8.9 mcg/ml do predict achievement of target AUC/JULIA however with 87% probability, will slightly adjust dose to target higher end of goal. Monitor renal function/culture results for de-escalation. 12/11 * 58 year old M receiving vancomycin for treatment of infected TKA. ID consult pending * Pertinent microbiologic data includes: possible I&D w cultures anticipated * SCr improved yesterday to today Plan Vancomycin * Loading dose: 2250 mg IV x 1 * Maintenance dose: 1500 mg IV every 12 hours * Adjust dose to 1750 mg q12H * Regimen is predicted to achieve target AUC/JULIA of 400-600 mg/L.hr * Random level ordered for tomorrow AM Pharmacy will continue to follow and will adjust dose/frequency as necessary. Claire krueger. Pharmacy has transitioned to AUC monitoring for vancomycin. AUC/JULIA is the preferred PK/PD target and is associated with decreased risk of nephrotoxicity compared to traditional trough targets.
[2023-12-13] MEDS: KETOROLAC TROMETHAMINE 15 MG/ML VIAL IV PRN (13:10)
[2023-12-13] MEDS: VANCOMYCIN HCL 1,750 MG in SODIUM CHLORIDE 0.9% 500 ML IV SCH (20:13)
--- NOTE | 2023-12-14 07:29 | Orthopedic Progress Note ---
Date of Service December 14, 2023 Assessment & Plan (1) Infection of total left knee replacement: Plan: POD #2 s/p Left knee incision, drainage, irrigation, debridement, prepatellar bursa and left knee joint with tibial polyethylene exchange and placement of Stimulan antibiotic beads and revision repair medial retinaculum and closure over drains knee joint and prepatellar bursa Intraoperative cultures growing gram-positive cocci, Staphylococcus. Awaiting possible sensitivities. Continue IV antibiotics as written. Continue the Hemovac drain. 20 cc drainage out of 1 drain and 80 cc drainage out of the other overnight. PT/OTweight-bear as tolerated on the left lower extremity. Must wear the knee immobilizer while ambulating. The knee immobilizer may be off for range of motion. No range of motion past 90 degrees of flexion. Pain controlas written. Discharge planningawaiting cultures and sensitivities. Appreciate ID input. Once cultures are finalized and antibiotic plan is finalized, the patient will be discharged. We discussed probable PICC line for 6 weeks of antibiotic therapy. Admission and Anticipated Discharge Date Admission Date: December 11, 2023 Subjective The patient is doing well overall. Pain is controlled in the left knee. No new complaints today. Physical Exam Constitutional: WD/WN, vitals as above no acute distress (Lying comfortably in bed) Musculoskeletal: Knee: + surgical incision (Left knee dressing C/D/I) and + surgical drain present (100 cc total from Hemovac--20 cc one drain, 80 cc from second drain.) Neurologic: normal touch/pain/proprioception Psychiatric: A+Ox3, euthymic affect Speech: normal rate/rhythm/volume of speech Results & Data Vital Signs (Past 12 Hours) Vital Signs Temp Pulse Resp BP Pulse Ox O2 Del Method 12/13/23 20:21 36.8 C 89 22 148/83 H 94 Room Air Laboratory Results Spec: [id number] Collected: 12/12/23-UNK Received: 12/12/23-[address]: Heath Coronado M.D. Source: Knee,Left OV Order: Ordered: Aer/Kiki Cult/Sm Comments: Comment Tissue Culture 3. Soft Tissue Membrane under poly Procedure Result Verified Site Gram Stain Final 12/13/23-0752 Gram Stain Result Few WBCs Seen No Organisms Seen Aero/Kiki Cult Preliminary 07/13/24-1315 Organism 1 Gram positive cocci Quantity Rare Sens Sensitivities Dependent on Further Identification (1) Infection of total left knee replacement Encounter type: initial encounter Qualified Code(s): T84.54XA - Infection and inflammatory reaction due to internal left knee prosthesis, initial encounter
[2023-12-14 07:58] LABS: BUN Creatinine Ratio 9.6 (10-20); Calcium 8.7 mg/dl (8.6-10.3); Creatinine Clr Calc Pharmacy 102.1 ml/min; Est GFR (African American) 103.9 ml/min; Est GFR (Non-African American) 89.6 ml/min; Potassium 4.4 mmol/L (3.5-5.1)
--- NOTE | 2023-12-14 08:22 | Hospitalist Progress Note ---
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 Had aspiration at office but did not give samples on arrival for direct admission. Procal 0.08 POD #1 s/p Left knee incision, drainage, irrigation, debridement, prepatellar bursa and left knee joint with tibial polyethylene exchange and placement of Stimulan antibiotic beads and revision repair medial retinaculum and closure over drains knee joint and prepatellar bursa. Vancomycin IV continue -Vanco trough low prior, now wnl 12.8 OR cultures all positive except one with GPC/staph species on prelimniary -- monitor Blood cultures NGTD, will be 48 hours at 10:30am PICC line consent obtained yesterday, if BCx NGTD 48hrs can [address] for today WBC wnl on repeat, remains afebrile. Hgb stable, acute blood loss anemia from surgery/dilutional from IVF. DC'd IVF ordered by primary last evening. Pain control/bowel regimen/antiemetics/therapy evals per primary service DVT proph: Xarelto daily (2) Infection of left prepatellar bursa: Plan: s/p bursectomy as above, abx/cx as outlined (3) Sleep apnea: Plan: CPAP HS, has unit in the room (4) Prediabetes: Plan: A1c 5.9 earlier this year, on metformin which has been held added BSG AC/HS and can add SSI if elevations however suspect will be fine without (unless getting steroids w/ procedure may need coverage) Gabapentin TID prn B12 checked given metformin use, LOW normal 192 - IM while inpatient, rx for PO to continue at nm BSG AC/HS checks acceptable without needs and discontinued Resume metformin at nm rec (5) Benign essential hypertension: Plan: Chronic, stable 132/84 Continues home lisinopril (6) B12 deficiency: Plan: checked w/ metformin use/neuropathy LOW normal 192, IM x 2 while inpatient and added to home meds to continue at nm Plan Thank you for allowing hospitalist service to participate in the care of Mr Moya. Hospitalist service will follow along. Please call with any questions/concerns. Admission and Anticipated Discharge Date Admission Date: December 11, 2023 Supervising Physician Co-Signing Physician Notes The patient was not seen by me. The chart was reviewed. Case discussed with LLUVIA Max. Agree with assessment and plan Subjective Evaluated this morning, sitting up at side of bed. Pain improving. Discussed OR cultures, blood cultures remaining negative to date and will plan for PICC line today. Hopefully finalized cultures and if so will touch base w/ ID utilization coordinator but if still pending may need to finalize in AM but hopefully able to switch to once daily Dapto and could then get in AM through IV and dc w/ home IV abx if CM able to arrange in short fashion. No CP/SOB, no abdominal pain/nausea. Discussed metformin use and low B12/replacement. Questions/concerns addressed at this time. Physical Exam Physical Exam: General: 58yo male sitting up at the side of the bed, NAD HEENT: head atraumatic, normocephalic, mmm, trachea midline, +thick neck Resp: even/unlabored, no wcr, on room air CV: RRR, no m/r/g, no pitting edema/calf tenderness. varicose veins on the LLE. pulses palpable GI: +BS, soft but slight distension, nontender MSK/Neuro:not confused, answering questions appropriately prior R knee scar well healed, no issues LEFT w/ dressing in place/immobilizer, hemovac x 2. compartments soft/supple, calves nontender, sensation intact Psych: AOx3, cooperative and pleasant Results & Data Results & Data Vital Signs (Past 12 Hours) Vital Signs Temp Pulse Resp BP BP Pulse Ox O2 Del Method 12/14/23 07:32 36.9 C 71 16 132/84 95 Room Air 12/13/23 20:21 36.8 C 89 22 148/83 H 94 Room Air Laboratory Results 12/14/23 Range/Units 06:38 Sodium 138 (136-145) mmol/L Potassium 4.4 (3.5-5.1) mmol/L Chloride 104 (98-107) mmol/L Carbon Dioxide 28 (21-32) mmol/L Anion Gap 6 (3-11) BUN 9 (6-23) mg/dl Creatinine 0.94 (0.6-1.4) mg/dl Est Cr Clr Drug Dosing 102.1 ml/min Est GFR ( Amer) 103.9 ml/min Est GFR (Non-Af Amer) 89.6 ml/min BUN/Creatinine Ratio 9.6 L (10-20) Glucose 98 (70-99(Fasting)) mg/dl Calcium 8.7 (8.6-10.3) mg/dl Vitamin B12 192 (180-914) pg/ml Random Vancomycin 12.4 (10-20) mcg/ml PG Care Time/CCT Total # of Minutes Spent Total Time Spent with Patient: Total time spent is greater than 50% in coordination of care (as documented) at patient's floor/unit and/or counseling patient: Coding Level of Care Code 65138 SUB INP/OBS CARE 2/35MIN Diagnoses Infection of total left knee replacement, initial encounter T84.54XA Encounter type: initial encounter Infection of left prepatellar bursa M71.162 Sleep apnea G47.30 Prediabetes R73.03 Benign essential hypertension I10 B12 deficiency E53.8 (1) Infection of total left knee replacement Encounter type: initial encounter Qualified Code(s): T84.54XA - Infection and inflammatory reaction due to internal left knee prosthesis, initial encounter
[2023-12-14] MEDS: CYANOCOBALAMIN 1000 MCG/ML VIAL IM SCH (09:54)
--- NOTE | 2023-12-14 12:01 | Pharmacy Report ---
Pharmacy PK ABX Note - Date of Service December 14, 2023 - Assessment and Plan Assessment 12/13: All left knee cultures growing staph species- awaiting further identification/sensitivities. Random level this AM 12.4 mcg/ml predicts achievement of target AUC/JULIA. 12/12: Left Knee cultures growing: GPC in 2, staph species in 2- awaiting further identification/sensitivities. Per ID plan for 6 weeks of treatment if deep seeded infection with retained hardware. Blood cultures currently still pending. Random level this morning 8.9 mcg/ml do predict achievement of target AUC/JULIA however with 87% probability, will slightly adjust dose to target higher end of goal. Monitor renal function/culture results for de-escalation. 12/11 * 58 year old M receiving vancomycin for treatment of infected TKA. ID consult pending * Pertinent microbiologic data includes: possible I&D w cultures anticipated * SCr improved yesterday to today Plan Vancomycin * Maintenance dose: 1750 mg IV every 12 hours * Regimen is predicted to achieve target AUC/JULIA of 400-600 mg/L.hr * Random level to be ordered in 2-3 days or with further renal function changes Pharmacy will continue to follow and will adjust dose/frequency as necessary. Thank you. Pharmacy has transitioned to AUC monitoring for vancomycin. AUC/JULIA is the preferred PK/PD target and is associated with decreased risk of nephrotoxicity compared to traditional trough targets.
--- NOTE | 2023-12-14 13:51 | XRay Report ---
XR chest 1V portable HISTORY: PICC line placement COMPARISON: Chest 12/12/2023. FINDINGS: A right PICC terminates in the expected location of the SVC. No pneumothorax. No pleural ef fusions. The lungs are clear. The heart is normal in size. There are low lung volumes. IMPRESSION: A right PICC terminates in the SVC. ACT 112: Negative or not required by law. Electronically signed by: Chucky Montaño M.D. 12/14/2023 1:50 PM
--- NOTE | 2023-12-15 07:52 | Hospitalist Progress Note ---
Date of Service December 15, 2023 Assessment & Plan (1) Infection of total left knee replacement: Plan: Concerns for infection of LEFT knee replacement -started clinda 300mg q6h per PCP (per patient, took 5 doses) for concerns cellulitis and not deeper infxn on 12/09 after presenting with redness/fever 101.5F on Friday night ESR/CRP elevated 57, 25.6. Had aspiration at office but did not give samples on arrival for direct admission. Procal 0.08 s/p Left knee incision, drainage, irrigation, debridement, prepatellar bursa and left knee joint with tibial polyethylene exchange and placement of Stimulan antibiotic beads and revision repair medial retinaculum and closure over drains knee joint and prepatellar bursa with Dr Coronado Vancomycin IV OR cx OR cx coag neg staph not lugdunensis WBC wnl Blood cultures NGTD x 48hrs, PICC line placed 12/13 Pain control/bowel regimen/antiemetics/PT/OT per primary service DVT proph: Xarelto ID on consult, touching base this morning. -->Discussed/Rec'd to ask micro to send for sensitivities for minocycline/linezolid- I discussed w/ micro, IS SENSITIVE to linezolid, minocycline not on out panel. Messaged ID of such and ID to finalize abx recs this morning once reviewed. If significant issues w/ cephalosporin given PCN may need adjustment but could consider Ancef cont infusion at dc ID to finalize abx recs this morning once reviewed. CM notified/to follow PICC line in place and able to dc once abx arranged Please call with any questions/concerns (2) Infection of left prepatellar bursa: Plan: s/p bursectomy as above, abx/cx as outlined (3) Sleep apnea: Plan: CPAP HS, has unit in the room (4) Prediabetes: Plan: A1c 5.9 earlier this year, on metformin which has been held added BSG AC/HS and can add SSI if elevations however suspect will be fine without (unless getting steroids w/ procedure may need coverage) Gabapentin TID prn B12 checked given metformin use, LOW normal 192 - IM while inpatient, rx for PO to continue at dc BSG AC/HS checks acceptable without needs and discontinued Resume metformin at dc rec (5) Benign essential hypertension: Plan: Chronic, stable 128/74 Continues home lisinopril (6) B12 deficiency: Plan: checked w/ metformin use/neuropathy-LOW normal 192, IM x 2 while inpatient and added to home meds to continue at dc Plan Thank you for allowing hospitalist service to participate in the care of Mr Moya. ID to review cxs this morning and will finalize abx plan once sees patient. CM notified to be on lookout for finalized recs and can dc once arranged. Will need ongoing lab monitoring on abx and outpatient follow up. Hospitalist service will sign off at this time. Please call with any questions/concerns. Admission and Anticipated Discharge Date Admission Date: December 11, 2023 Supervising Physician Co-Signing Physician Notes The patient was not seen by me. The chart was reviewed. Case discussed with LLUVIA Max. Agree with assessment and plan Subjective Evaluated this morning, sitting up in bed. Got some tylenol for pain. Hemovac output decreased Discussed touching base w/ ID this morning to finalize antibiotics but hopeful dc today if able to do such. Discussed worst case may be tomorrow if troubles w/ infusion company set up. Has some right neck discomfort but appears MSK. Monitoring for any issues w/ PICC as on that side, pulse present. No chest pain/shortness of breath. Questions/concerns addressed at this time. Physical Exam Physical Exam: General: 58yo male laying in bed, NAD HEENT: head atraumatic, normocephalic, mmm, trachea midline, +thick neck, some muscle tightness on the right, pulse present Resp: even/unlabored, no wcr, on room air CV: RRR, no m/r/g, no pitting edema/calf tenderness. varicose veins on the LLE. pulses palpable GI: +BS, soft/nontender MSK/Neuro:not confused, answering questions appropriately prior R knee scar well healed, no issues LEFT w/ dressing in place/immobilizer, hemovac x 2 (scant output, not emptied this morning). compartments soft/supple, calves nontender, sensation intact Psych: AOx3, cooperative and pleasant PG Care Time/CCT Total # of Minutes Spent Total Time Spent with Patient: Total time spent is greater than 50% in coordination of care (as documented) at patient's floor/unit and/or counseling patient: Coding Level of Care Code 22001 SUB INP/OBS CARE MIN Diagnoses Infection of total left knee replacement, initial encounter T84.54XA Encounter type: initial encounter Infection of left prepatellar bursa M71.162 Sleep apnea G47.30 Prediabetes R73.03 Benign essential hypertension I10 B12 deficiency E53.8 (1) Infection of total left knee replacement Encounter type: initial encounter Qualified Code(s): T84.54XA - Infection and inflammatory reaction due to internal left knee prosthesis, initial encounter
--- NOTE | 2023-12-15 10:08 | Infectious Disease Progress Nt ---
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 In the last few days the area has become more red and he had associated fever with Tmax 101.5F at home. He was seen by his PCP and ortho for this. He was started on clindamycin. He took about 5 doses of antibiotics with minimal improvement in redness and swelling. He was referred by ortho to the hospital for I and D. He denies trauma to the area, falls, cough change in stool, urine habits, chest pain. On admission he is afebrile and HDS. BCx NG (early). Labs with WBC 10.7, ESR 57, crp 25.6, procal 0.08, BUN 19, cr 0.99. CXr with no infiltrates. No knee imaging available. He was started ion IV vancomycin. ID consulted for left knee infection. On initial exam per ID, his left knee is warm, red, with a fluctuant effusion with some discomfort on palpation. Discussion On 12/11, the patient underwent I&D on 12/11 with tibial poly exchange and placement of Stimulan abx beads (vancomycin); note that patient underwent i rrigation with cefazolin solution as well. Intraoperatively, there was cloudy fluid with necrotic fat c/w infection. All 12/11 OR Cx (multiple specimens) returned positive for CoNS (S-oxacillin). This is consistent with CoNS PJI. For PJI, given retention of hardware, will recommend 6-weeks of pathogen- directed abx (often IV abx), followed by PO suppressive abx for at least 3-6 months, if not longer/indefinitely. He reports rash/hives with penicillins and Sulfa antibiotics. Discussed with Katty Landeros, ID pharmacist the patient received 3 doses of IV cefazolin a few months ago, and also received a recent course of cefadroxil for a few weeks. He also received intraoperative cefazolin solution irrigation on 12/11. He appears to have tolerated these well. Given that he appears to tolerate cefazolin, can use IV cefazolin for IV abx to complete a 6-week course. After completion of 6 weeks of IV abx, would then transition to PO abx for long-term PO suppression for at least 3-6 months, if n ot longer/indefinitely (e.g., cefadroxil). Other PO options include cephalexin and linezolid (sometimes used as once daily given that BID dosing is associated with myelosuppression); the isolate is R-tetracycline and the patient is allergic to Bactrim. Given isolation of Staph and retention of hardware, will also start adjunctive rifampin to target biofilm formation, likely to be continued for at least 3-6 months if patient is tolerating. The patient is on rivaroxaban for DVT ppx (not full-dose AC) and thus rifampin should be able to be used. Rifampin can lower the effectiveness of rivaroxaban can discuss with pharmacy; either continue current dose of rivaroxaban and monitor closely, or if high concern for DVT can increase rivaroxaban dose to 15-20 mg, or can change DVT ppx agent. Recommendations: - Change to cefazolin 2g IV q8h, to complete a 6-week course (12/1101/22/24). Upon discharge, can either continue as cefazolin 2g IV q8h or change to cefazolin 6g IV daily continuous infusion, per patient preference and home infusion options. - After completion of 6 weeks of IV abx, would then transition to PO abx for long-term PO suppression for at least 3-6 months, if not longer/indefinitely (e.g., cefadroxil 500 mg PO BID) - Start rifampin 300 mg PO BID for adjunctive therapy given placement of hardware, likely continue for at least 3-6 months if tolerating ---- Note patient is on rivaroxaban for DVT ppx can discuss with pharmacy; either continue current dose of rivaroxaban, or if high concern for DVT can increase rivaroxaban dose to 15-20 mg, or can change DVT ppx agent. - F/u 12/11 OR Cx until finalized - Ensure close follow-up with ortho - Recommend referral to local outpatient ID for follow-up if able - Weekly monitoring while on IV abx: CBC w/ diff, CMP, ESR, CRP. Recommend lab results are faxed to ortho and ID clinic (if applicable) Plan discussed with Mayte TEIXEIRA. Thank you for letting ID participate in the care of this patient. ID will sign off at this time. If questions, please contact the [facility] call center at [phone]. Evelia Mathias MD, MHS Admission and Anticipated Discharge Date Admission Date: December 11, 2023 Subjective This patient recommendation is based on a telemedicine consult request which was completed asynchronously through chart review and information provided by the primary physician. The patient was not seen or examined today. The evaluation is consultative in nature and all patient care and treatment decisions can either be accepted or rejected by the patient's primary hospital-based treating physician using their own independent medical judgment for their patient. Time Spent Reviewing Chart: 31+ minutes - s/p Left knee I&D, prepatellar bursa and left knee joint with tibial polyethylene exchange and placement of Stimulan antibiotic beads and revision repair medial retinaculum and closure over drains knee joint and prepatellar bursa. - 12/11 OR Cx + CoNS - PICC placed yesterday 12/13 - Discussed with ROB Atkinson pharmacist the patient received 3 doses of IV cefazolin a few months ago, and also received a recent course of cefadroxil for a few weeks. He also received intraoperative cefazolin solution irrigation on 12/11. He appears to have tolerated these well. Results & Data Vital Signs (Past 12 Hours) Vital Signs Temp Pulse Resp BP Pulse Ox O2 Del Method 12/15/23 07:45 36.7 C 78 16 128/74 98 Room Air Laboratory Results Micro Data: 12/11 OR Cx L knee: #1 (knee joint) Cx: CoNS not lugdunensis; stain: rare WBCs, no orgs #2 (knee joint) Cx: CoNS not lugdunensis; stain: few WBCs, no orgs #3 (knee joint) Cx: CoNS not lugdunensis; stain: few WBCs, no orgs #4 (poly tibial baseplate interface) Cx: CoNS not lugdunensis; stain: no WBCs, no orgs tissue Cx 1 (pre-patellar bursa) Cx: CoNS not lugdunensis; stain: rare WBCs, no orgs tissue Cx 2 (knee joint synovial) Cx: CoNS not lugdunensis (S-oxacillin JUILA <=0.25/vancomycin/daptomycin/Bactrim/linezolid; R-clindamycin/tetracycline); stain: rare WBCs, no orgs 12/11 BCx x2: NGTD Antibiotic Summary: cefazolin (12/14 present) rifampin (12/14 present) prior Vancomycin (12/10-12/14) intraoperative abx: cefazolin (for OR irrigation on 12/11), vancomycin in Stimulan beads on 12/11 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 Incision into the prepatellar bursa demonstrated cloudy fluid with necrotic fat consistent with infection. There was a defect in the medial retinaculum extending into the knee joint with deep infection. Cultures were obtained soft tissue bursa and swabs in the prepatellar bursa area cultures were obtained in the knee joint area. Subcutaneous flaps were elevated and the knee incision was extended slightly proximally and distally from the original surgical incision. The medial retinacular tear was around the mid and superior medial aspect of the patella. This was extended up into the mid third of the quadriceps tendon and down to the medial tibia. Electrocautery synovectomy was performed. This allowed exposure and retractors to remove the tibial polyethylene with a curved osteotome and tenaculum. Membrane underneath the tibial component was swabbed and membrane tissue and some of the posterior capsular synovial tissue was sent for culture as well. Also some synovial tissue of the knee joint was sent for culture. After all this was performed and I irrigated the knee copiously with pulsatile lavage antibiotic solution with Ancef in the solution. At this point Versajet was used to do a thorough debridement of all the tendon edges of the prepatellar bursa area the gutters and the joint posterior capsular area. All membrane was removed from the notch area. All membrane was removed from around the tibial component. Further irrigation with more antibiotic solution with Ancef was performed for a total of 6 L. Trial reduction was performed then the 10 F CPS component still had good stability so we continue with the same component that he had previously. A Betadine scrub with scrub brush was performed to the metallic areas. The knee was then soaked with 3-minute Betadine soak. Then this was irrigated out with antibiotic with Ancef for total of 12 L and then we reprepped and draped changed all gloves and gowns with full precaution. The knee was irrigated with Xperience and then the tibial polyethylene was placed which was the 10 F CPS left poly. The Stimulan beads had been mixed with 1 g vancomycin were placed into the suprapatellar region in the gutters. 2 drains were brought out laterally connected to a Hemovac. The quadriceps tendon medial retinaculum were repaired with #1 bacterial resistant Vicryl suture. Took the knee through 0 through 90 degrees range of motion and repair was secure. Third Hemovac drain was placed into the prepatellar subcutaneous area area and then the subcutaneous tissues were repaired with interrupted 2 oh bacterial resistant sutures and skin was closed with surgical rehana and a Silverlon occlusive dressing was applied. Compressive Webril bandage was applied over the Silverlon followed by Antwan wrap from the foot to the thigh
[2023-12-15] MEDS: rifAMPin 300 MG CAPSULE PO SCH (10:49)
[2023-12-15] MEDS: CEFEPIME 2,000 MG in SYRINGE 0 ML IV SCH (10:52)
[2023-12-15] MEDS: ceFAZolin 2000MG 2,000 MG/15 ML SYR IV SCH (12:05)
--- NOTE | 2023-12-15 15:04 | Orthopedic Progress Note ---
Date of Service December 15, 2023 Assessment & Plan (1) Infection of total left knee replacement: Plan: POD #3 s/p Left knee incision, drainage, irrigation, debridement, prepatellar bursa and left knee joint with tibial polyethylene exchange and placement of Stimulan antibiotic beads and revision repair medial retinaculum and closure over drains knee joint and prepatellar bursa Intraoperative cultures growing gram-positive cocci, Staphylococcus. ID recommendation: Change to cefazolin 2g IV q8h, to complete a 6-week course (12/1101/22/24). Upon discharge, can either continue as cefazolin 2g IV q8h or change to cefazolin 6g IV daily continuous infusion, per patient preference and home infusion options. - After completion of 6 weeks of IV abx, would then transition to PO abx for long-term PO suppression for at least 3-6 months, if not longer/indefinitely (e.g., cefadroxil 500 mg PO BID) - Start rifampin 300 mg PO BID for adjunctive therapy given placement of hardware, likely continue for at least 3-6 months if tolerating. Hemovac drains will be removed today. PT/OTweight-bear as tolerated on the left lower extremity. Must wear the knee immobilizer while ambulating. The knee immobilizer may be off for range of motion. No range of motion past 90 degrees of flexion. Pain controlas written. Discharge planningonce IV treatments are set up, the patient will be able to be discharged home. Admission and Anticipated Discharge Date Admission Date: December 11, 2023 Subjective Patient is doing well today with the left knee. Pain control within the knee. He has been ambulating with the knee immobilizer. Has met with medicine and case management about discharge home with IV antibiotics. Physical Exam Constitutional: WD/WN, vitals as above no acute distress (Lying comfortably in bed) Musculoskeletal: Knee: + surgical incision (Left knee dressing C/D/I) and + surgical drain present (Minimal drainage from each drain.) Neurologic: normal touch/pain/proprioception Psychiatric: A+Ox3, euthymic affect Speech: normal rate/rhythm/volume of speech Results & Data Vital Signs (Past 12 Hours) Vital Signs Temp Pulse Resp BP BP Pulse Ox O2 Del Method 12/15/23 12:26 37 C 80 16 142/80 H 95 Room Air 12/15/23 07:45 36.7 C 78 16 128/74 98 Room Air (1) Infection of total left knee replacement Encounter type: initial encounter Qualified Code(s): T84.54XA - Infection and inflammatory reaction due to internal left knee prosthesis, initial encounter
[2023-12-16 07:12] LABS: Est GFR (African American) 96.4 ml/min; Est GFR (Non-African American) 83.2 ml/min
--- NOTE | 2023-12-16 08:14 | Orthopedic Progress Note ---
Date of Service December 16, 2023 Assessment & Plan (1) Infection of total left knee replacement: Plan: Postop infected knee replacement irrigation debridement polyethylene exchange bursectomy. Currently on IV cephalosporin. Patient can be discharged home when home IV antibiotic therapy plan formalized. Continue hospitalization untill then with IV antibiotics. Admission and Anticipated Discharge Date Admission Date: December 11, 2023 Review of Systems Review of Systems: No fever chills feels well Physical Exam Physical Exam: Left knee bandage in place no drainage erythema almost completely resolved. Distal circulation sensorimotor exam intact. Results & Data Diagnostic Findings Coag negative staph growing on cultures (1) Infection of total left knee replacement Encounter type: initial encounter Qualified Code(s): T84.54XA - Infection and inflammatory reaction due to internal left knee prosthesis, initial encounter
[2023-12-16] MEDS: CYANOCOBALAMIN (B-12) 500 MCG TABLET PO SCH (08:43)
[2023-12-16] MEDS: RIVAROXABAN 15 MG TAB PO SCH (14:34)
== END 2023-12-16 16:35 | disposition home or self-care (01) | DRG 467 ==
LOC: 3N 18:53
DX: Z86.16 Personal history of COVID-19; Y79.2 Prosthetic and other implants, materials and accessory orthopedic devices associated with adverse incidents; Z88.0 Allergy status to penicillin; Z79.84 Long term (current) use of oral hypoglycemic drugs; R73.03 Prediabetes; Y92.019 Unspecified place in single-family (private) house as the place of occurrence of the external cause; N40.0 Benign prostatic hyperplasia without lower urinary tract symptoms; T84.54XA Infection and inflammatory reaction due to internal left knee prosthesis, initial encounter; E53.8 Deficiency of other specified B group vitamins; B95.8 Unspecified staphylococcus as the cause of diseases classified elsewhere; M71.162 Other infective bursitis, left knee; Z83.3 Family history of diabetes mellitus; L03.116 Cellulitis of left lower limb; I10 Essential (primary) hypertension; Z96.651 Presence of right artificial knee joint; Z88.2 Allergy status to sulfonamides; D62 Acute posthemorrhagic anemia